=== PATIENT | male | born 1955 | race Caucasian/White ===

== ENCOUNTER 2023-06-27 13:54 | Inpatient (IN) ==
[2023-06-27 14:26] LABS: Base Excess VBG 5.5 mEq/L; HCO3 VBG 33 mmol/L; Oxygen Saturation VBG < 60.0 %; PCO2 VBG 59 mmHg (38-50); PO2 VBG 25 mmHg; pH VBG 7.36 (7.36-7.41)
--- NOTE | 2023-06-27 14:29 | Emergency Department Note ---
Impression & Plan Decreased responsiveness, Acute UTI, History of stroke, RLL pneumonia ED Provider Note Provider: August Patiño MD DATE OF SERVICE: 06/27/2023 CHIEF COMPLAINT: Altered mental status HISTORY OF PRESENT ILLNESS: Patient is a 68-year-old gentleman past medical history of hypertension, hyperlipidemia, type 2 diabetes, COPD, alcohol use, and recent hospitalization at [facility] found to have a left MCA stroke and PEs. Records from the facility stated the PEs are likely subacute or chronic possibly with pneumonia and COPD exacerbation. Patient discharged yesterday to [facility] for rehab after hospitalization. Evidently there is some question if he wore his CPAP appropriately overnight and this morning was awake and alert. By lunchtime was more altered and somnolent. Initially placed on CPAP there due to his altered mental status and here for evaluation. Upon arrival the patient is somewhat arousable to verbal stimuli was able to tell me his name but not clearly what is going on. There is no reported trauma or fever. PAST MEDICAL HISTORY: As noted above MEDICATIONS: Reviewed medication list from the facility includes Lasix and Eliquis. SOCIAL HISTORY: History of alcohol use reported by chart PHYSICAL EXAM: GENERAL: Patient in no distress resting eyes closed. Able to arouse to verbal stimuli but still quite drowsy. Head: normocephalic and atraumatic EYES: No injection, discharge or icterus. NECK: Trachea midline. ENT: Mucous membranes pink and moist. LUNGS: Airway patent. No retractions. Breath sounds clear HEART: Regular rate and rhythm. No chest wall tenderness ABDOMEN: Soft and non-tender, without guarding or rebound. SKIN: Acyanotic, warm, dry, without rashes EXTREMITIES: Without swelling, tenderness or deformity NEUROLOGICAL: Withdraws to pain in all extremities but only alert to verbal stimuli. No aphasia. No facial droop or slurred speech. EK bpm normal sinus rhythm. A bit of artifact but no PVC or PAC noted. No acute ST segment elevation noted with a QTc of 460. CONTINUOUS CARDIAC MONITORING: was ordered and showed a heart rate of 70s-80s bpm in normal sinus rhythm Patient's laboratory studies and imaging reviewed. Differential includes Infection, dehydration, metabolic abnormality, hypo/hyperglycemia, electrolyte disturbance, anemia, hypoxia, cardiac sources, intracerebral event, toxicologic, neurologic, as well as other pathologies. IMPRESSION/MEDICAL DECISION MAKING: Patient altered upon arrival. Limited history from him. Reviewed available records from prior hospitalization.Given some gentle IV fluid hydration here as initial blood pressure somewhat low. Will obtain VBG. Will obtain CT of the head given history of stroke in the anticoagulation is change in mental status. Normally on 2 L of oxygen. Does not seem significantly fluid overloaded on clinical exam. Does not seem to have focality to exam and lower suspicion for acute CVA. Not thrombolytic candidate due to his use of anticoagulation in any event. VBG obtained with a pH of 7.36 and a CO2 of 59 does not seem indicative of acute hypercarbic respiratory failure given the normal pH. Lactate normal at 1.5. No anemia. Leukocytosis of 14.[address] of the head obtained and radiology report reviewed without evidence of acute intracranial bleed at this time. Chest x-ray reviewed with low lung volumes and possibly right lower haziness. Patient seems stable on baseline oxygen. Chemistries without severe abnormality but a creatinine noted at 1.7. CK minimally elevated 326 not severely. No evidence of significant transaminitis purulent ammonia 23 is normal. Bilirubin 1.5 not significantly elevated. Respiratory viral panel negative. Urinalysis somewhat questionable for infection. Given the recent hospitalization status covered broadly with Zosyn. Will bring into the hospital for further evaluation of his AMS and what appears to be possibly infection. Received a liter and half of IV fluid cautious given his history of fluid overload from the limited available records here. 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 On anticoagulant therapy just started on eliquis Anxiety Leaky heart valve Hypertension Hyperlipidemia Sleep apnea cpap Pulmonary embolism admitted 06/11/19-06/14/2018 at [facility], unknown etiology--just started on eliquis bid Surgical History History of open reduction and internal fixation (ORIF) procedure right hand pinky---hardware removed Status post trigger finger release right hand History of arthroscopy of right knee History of colonoscopy with polypectomy History of umbilical hernia repair History of right inguinal hernia repair History of appendectomy History of esophagogastroduodenoscopy (EGD) History of tooth extraction Family History Brother Family history of diabetes mellitus Mother Family history of diabetes mellitus Sister Family history of diabetes mellitus Sister Family history of diabetes mellitus Other No family history of adverse response to anesthesia Social History Smoking Status: Never smoker Second Hand Exposure: Yes (went to bars); Do You Dip or Chew Tobacco: No; Hx Alcohol Use: Yes Alcohol type: beer Hx Substance Use: No Preferred Language: Vietnamese Communication Ability: Impaired Check Out Clerk Required: No Beliefs That Will Affect Care: None Current Living Situation: Rehab Current Living Situation Comment: Was transferred from [facility] Rehab Feels Safe at Home: Yes Assistive Devices: CPAP and Glasses Allergies Allergies Allergy/AdvReac Type Severity Reaction Status Date / Time NSAIDS (Non-Steroidal Allergy Mild "not to Verified 06/25/19 10:41 Anti-Inflamma take d/t GERD" Home Meds Home Medications Medication Instructions Recorded Confirmed apixaban 5 mg tablet (Eliquis) 5 mg PO BID 06/25/19 06/27/23 lisinopril 20 mg tablet 20 mg PO QAM 06/25/19 06/27/23 metformin 500 mg tablet 500 mg PO QDL 06/25/19 06/27/23 metoprolol tartrate 25 mg tablet 25 mg PO HS 06/25/19 06/27/23 acetaminophen 325 mg tablet 650 mg PO Q4 PRN Pain (Scale Score 06/27/23 06/27/23 1-3) albuterol sulfate 90 mcg/actuation 2 puff inhalation Q4 PRN Shortness 06/27/23 06/27/23 aerosol inhaler Of Breath amlodipine 10 mg tablet 10 mg PO DAILY 06/27/23 06/27/23 aspirin 81 mg chewable tablet 81 mg PO DAILY 06/27/23 06/27/23 atorvastatin 80 mg tablet 80 mg PO HS 06/27/23 06/27/23 cyclobenzaprine 5 mg tablet 5 mg PO BID PRN Muscle Spasm 06/27/23 06/27/23 docusate sodium 100 mg capsule 100 mg PO BID 06/27/23 06/27/23 duloxetine 20 mg capsule,delayed 20 mg PO DAILY 01/15/24 01/15/24 release furosemide 20 mg tablet 20 mg PO .BID AC 06/27/23 06/27/23 gabapentin 300 mg capsule 300 mg PO Q8 06/27/23 06/27/23 metformin 1,000 mg tablet 1,000 mg PO BIDWMEAL 06/27/23 06/27/23 metoprolol tartrate 50 mg tablet 50 mg PO DAILY 06/27/23 06/27/23 (Lopressor) ondansetron 4 mg disintegrating 4 mg PO Q4 PRN NAUSEA OR VOMITING 06/27/23 06/27/23 tablet pantoprazole 40 mg tablet,delayed 40 mg PO BID 06/27/23 06/27/23 release polyethylene glycol 3350 17 17 g PO .Q LUNCH PRN Constipation 06/27/23 06/27/23 gram/dose oral powder (Miralax) sennosides 8.6 mg-docusate sodium 1 tab-cap PO QDL PRN Constipation 06/27/23 06/27/23 50 mg tablet (Senokot-S) tamsulosin 0.4 mg capsule 0.4 mg PO .EVERY 12 HOURS 06/27/23 06/27/23 trazodone 150 mg tablet 150 mg PO HS 06/27/23 06/27/23 Results & Data (ED) Vital Signs Vital Signs - 24 hr 06/27/23 13:54 06/27/23 14:10 06/27/23 14:26 Temperature 36.8 C Temperature Source Oral Pulse Rate 78 75 74 Pulse Rate [Apical] Pulse Rate from SpO2 Sensor 74 Respiratory Rate 16 14 Respiratory Effort / Characteristics Non-Labored Spontaneous Respiratory Depth Normal Respiratory Pattern Regular Blood Pressure 89/67 L 94/70 L Blood Pressure [Left Arm] Blood Pressure Mean 74 78 Blood Pressure Mean [Left Arm] Blood Pressure Position Lying Blood Pressure Position [Left Arm] Pulse Oximetry 94 95 Oxygen Delivery Method Nasal Cannula Oxygen Flow Rate 2 2 Sepsis Recent Fever Within 48 Hours No Sepsis New/Unexplained Change in Mental Status Yes Sepsis Action Taken by Nursing Physician Notified 06/27/23 15:13 06/27/23 15:13 06/27/23 16:00 Temperature Temperature Source Pulse Rate Pulse Rate [Apical] 75 74 Pulse Rate from SpO2 Sensor Respiratory Rate 11 L 16 Respiratory Effort / Characteristics Non-Labored Spontaneous Non-Labored Spontaneous Respiratory Depth Normal Normal Respiratory Pattern Regular Regular Blood Pressure Blood Pressure [Left Arm] 103/68 109/84 Blood Pressure Mean Blood Pressure Mean [Left Arm] 79 92 Blood Pressure Position Blood Pressure Position [Left Arm] Semi-fowlers Semi-fowlers Pulse Oximetry 92 92 93 Oxygen Delivery Method Nasal Cannula Nasal Cannula Nasal Cannula Oxygen Flow Rate 3 3 3 Sepsis Recent Fever Within 48 Hours Sepsis New/Unexplained Change in Mental Status Sepsis Action Taken by Nursing Laboratory Data 06/27/23 14:05 06/27/23 15:03 Lab Results 06/27/23 06/27/23 06/27/23 Range/Units 14:05 14:30 15:03 WBC 14.76 H (4.8-10.8) K/ul RBC 5.60 (4.70-6.10) M/uL Hgb 16.8 (14.0-18.0) g/dl Hct 50.3 (42.0-52.0) % MCV 89.8 (80.0-100.0) fL MCH 30.0 (25.0-34.0) pg MCHC 33.4 (32.0-36.0) g/dL RDW Std Deviation 45.0 (36.4-46.3) fL RDW Coeff of Sarah 13.6 (11.5-14.5) % Plt Count 306 (130-400) K/uL MPV 9.4 (9.4-12.4) fL Immature Gran % (Auto) 0.5 % Neut % (Auto) 82.4 % Lymph % (Auto) 9.4 % [place] % (Auto) 6.2 % Eos % (Auto) 1.1 % Baso % (Auto) 0.4 % Neut # (Auto) 12.16 H (1.40-6.50) K/uL Lymph # (Auto) 1.39 (1.20-3.40) K/uL [place] # (Auto) 0.92 H (0.11-0.59) K/uL Eos # (Auto) 0.16 (0.00-0.50) K/uL Baso # (Auto) 0.06 (0.00-0.20) K/uL Immature Gran # (Auto) 0.07 (0.01-0.20) K/uL PT Cancelled INR Cancelled VBG pH 7.36 (7.36-7.41) VBG pCO2 59 H (38-50) mmHg VBG pO2 25 mmHg VBG HCO3 33 mmol/L VBG O2 Saturation < 60.0 % VBG Base Excess 5.5 mEq/L Sodium Cancelled 136 Potassium Cancelled 4.8 Chloride Cancelled 99 Carbon Dioxide Cancelled 30 Anion Gap Cancelled 7 BUN Cancelled 17 Creatinine Cancelled 1.74 H Est Cr Clr Drug Dosing Cancelled 41.4 Est GFR ( Amer) Cancelled 45.4 Est GFR (Non-Af Amer) Cancelled 39.1 BUN/Creatinine Ratio Cancelled 9.8 L Glucose Cancelled 216 H Lactate 1.5 (0.4-2.0) mmol/L Calcium Cancelled 8.9 Magnesium Cancelled 1.7 Total Bilirubin Cancelled 1.5 H AST Cancelled 19 ALT Cancelled 15 Alkaline Phosphatase Cancelled 63 Ammonia 23.0 (18-72) umol/L Total Creatine Kinase Cancelled 326 H Troponin I High Sens Cancelled 14.4 C-Reactive Protein 1.71 H (0-0.5) mg/dl Total Protein Cancelled 6.8 Albumin Cancelled 3.9 Globulin Cancelled 2.9 Albumin/Globulin Ratio Cancelled 1.3 TSH Cancelled 2.837 Urine Color Urine Appearance (Clear) Urine pH (4.5-7.5) Ur Specific [place] (1.000-1.030) Urine Protein (Negative) Urine Glucose (UA) (Negative) Urine Ketones (Negative) Urine Blood (Negative) Urine Nitrite (Negative) Urine Bilirubin (Negative) Urine Urobilinogen (Negative) Ur Leukocyte Esterase (Negative) Urine RBC (0-4) /hpf Urine WBC (0-5) /hpf Ur Epithelial Cells (0-5) /lpf Urine Bacteria (Negative) Urine Opiates Screen (Neg) Ur Methadone, Qual (Neg) Urine Barbiturates (Neg) Ur Phencyclidine (PCP) (Neg) U Amphetamin/Meth Scrn (Neg) MDMA (Ecstasy) Screen (Neg) U Benzodiazepines Scrn (Neg) Ur Cocaine Metabolite (Neg) U Marijuana (THC) Screen (Neg) Adenovirus (PCR) Not Detected (NotDetected) B. pertussis DNA (PCR) Not Detected (NotDetected) B.parapertussis DNA PCR Not Detected (NotDetected) C. pneumoniae DNA (PCR) Not Detected (NotDetected) Coronavirus OC43 (PCR) Not Detected (NotDetected) Coronavirus HKU1 (PCR) Not Detected (NotDetected) Coronavirus 229E (PCR) Not Detected (NotDetected) SARS-CoV-2 (PCR) Not Detected (NotDetected) Coronavirus NL63 (PCR) Not Detected (NotDetected) Human Metapneumovir PCR Not Detected (NotDetected) Influenza Type A (PCR) Not Detected (NotDetected) Influenza Type B (PCR) Not Detected (NotDetected) M. pneumoniae (PCR) Not Detected (NotDetected) Parainfluenza 1 (PCR) Not Detected (NotDetected) Parainfluenza 2 (PCR) Not Detected (NotDetected) Parainfluenza 3 (PCR) Not Detected (NotDetected) Parainfluenza 4 (PCR) Not Detected (NotDetected) RSV (PCR) Not Detected (NotDetected) Entero/Rhino (PCR) Not Detected (NotDetected) 06/27/23 06/27/23 Range/Units 15:26 15:57 WBC (4.8-10.8) K/ul RBC (4.70-6.10) M/uL Hgb (14.0-18.0) g/dl Hct (42.0-52.0) % MCV (80.0-100.0) fL MCH (25.0-34.0) pg MCHC (32.0-36.0) g/dL RDW Std Deviation (36.4-46.3) fL RDW Coeff of Sarah (11.5-14.5) % Plt Count (130-400) K/uL MPV (9.4-12.4) fL Immature Gran % (Auto) % Neut % (Auto) % Lymph % (Auto) % [place] % (Auto) % Eos % (Auto) % Baso % (Auto) % Neut # (Auto) (1.40-6.50) K/uL Lymph # (Auto) (1.20-3.40) K/uL [place] # (Auto) (0.11-0.59) K/uL Eos # (Auto) (0.00-0.50) K/uL Baso # (Auto) (0.00-0.20) K/uL Immature Gran # (Auto) (0.01-0.20) K/uL PT 12.5 H INR 1.2 H VBG pH (7.36-7.41) VBG pCO2 (38-50) mmHg VBG pO2 mmHg VBG HCO3 mmol/L VBG O2 Saturation % VBG Base Excess mEq/L Sodium Potassium Chloride Carbon Dioxide Anion Gap BUN Creatinine Est Cr Clr Drug Dosing Est GFR ( Amer) Est GFR (Non-Af Amer) BUN/Creatinine Ratio Glucose Lactate (0.4-2.0) mmol/L Calcium Magnesium Total Bilirubin AST ALT Alkaline Phosphatase Ammonia (18-72) umol/L Total Creatine Kinase Troponin I High Sens C-Reactive Protein (0-0.5) mg/dl Total Protein Albumin Globulin Albumin/Globulin Ratio TSH Urine Color Yellow Urine Appearance Clear (Clear) Urine pH 6.0 (4.5-7.5) Ur Specific [place] 1.020 (1.000-1.030) Urine Protein Trace H (Negative) Urine Glucose (UA) 1+ H (Negative) Urine Ketones Negative (Negative) Urine Blood Trace-intact H (Negative) Urine Nitrite Positive A (Negative) Urine Bilirubin Negative (Negative) Urine Urobilinogen Negative (Negative) Ur Leukocyte Esterase Trace H (Negative) Urine RBC 0-4 (0-4) /hpf Urine WBC 10-30 H (0-5) /hpf Ur Epithelial Cells 0-5 (0-5) /lpf Urine Bacteria 3+ H (Negative) Urine Opiates Screen Neg (Neg) Ur Methadone, Qual Neg (Neg) Urine Barbiturates Neg (Neg) Ur Phencyclidine (PCP) Neg (Neg) U Amphetamin/Meth Scrn Neg (Neg) MDMA (Ecstasy) Screen Neg (Neg) U Benzodiazepines Scrn Pos H (Neg) Ur Cocaine Metabolite Neg (Neg) U Marijuana (THC) Screen Neg (Neg) Adenovirus (PCR) (NotDetected) B. pertussis DNA (PCR) (NotDetected) B.parapertussis DNA PCR (NotDetected) C. pneumoniae DNA (PCR) (NotDetected) Coronavirus OC43 (PCR) (NotDetected) Coronavirus HKU1 (PCR) (NotDetected) Coronavirus 229E (PCR) (NotDetected) SARS-CoV-2 (PCR) (NotDetected) Coronavirus NL63 (PCR) (NotDetected) Human Metapneumovir PCR (NotDetected) Influenza Type A (PCR) (NotDetected) Influenza Type B (PCR) (NotDetected) M. pneumoniae (PCR) (NotDetected) Parainfluenza 1 (PCR) (NotDetected) Parainfluenza 2 (PCR) (NotDetected) Parainfluenza 3 (PCR) (NotDetected) Parainfluenza 4 (PCR) (NotDetected) RSV (PCR) (NotDetected) Entero/Rhino (PCR) (NotDetected) Administered Medications Apixaban (Apixaban 5 Mg Tablet) 5 mg PO BID RADHA Stop: 07/27/23 20:59 Last Admin: 06/27/23 21:10 Dose: Not Given Documented By: TEREZA Atorvastatin Calcium (Atorvastatin 40 Mg Tab) 80 mg PO HS RADHA Stop: 07/27/23 20:59 Last Admin: 06/27/23 21:10 Dose: Not Given Documented By: TEREZA Docusate Sodium (Docusate Sodium 100 Mg Cap) 100 mg PO BID RADHA Stop: 07/27/23 20:59 Last Admin: 06/27/23 21:10 Dose: Not Given Documented By: TEREZA Lactated Ringer's (Lr) 1,000 mls @ 125 mls/hr IV .Q8H RADHA Stop: 06/28/23 18:44 Last Admin: 06/27/23 19:05 Dose: 125 mls/hr Documented By: DIANDRA Metoprolol Tartrate (Metoprolol Tartrate 25 Mg Tab) 25 mg PO HS RADHA Stop: 07/27/23 20:59 Last Admin: 06/27/23 21:10 Dose: Not Given Documented By: TEREZA Pantoprazole Sodium (Pantoprazole 40 Mg Tab) 40 mg PO BID RADHA Stop: 07/27/23 20:59 Last Admin: 06/27/23 21:10 Dose: Not Given Documented By: TEREZA Discontinued Medications Sodium Chloride (Nss) 500 mls @ 999 mls/hr IV .Q31M RADHA Stop: 06/27/23 15:00 Last Infusion: 06/27/23 15:49 Dose: Infused Documented By: Admin: 06/27/23 15:15 Dose: 999 mls/hr Documented By: DIANDRA Piperacillin Sod/Tazobactam Sod (Zosyn) 4.5 gm in 100 mls @ 200 mls/hr IV NOW ONE Stop: 06/27/23 16:33 Last Infusion: 06/27/23 16:47 Dose: Infused Documented By: Admin: 06/27/23 16:12 Dose: 200 mls/hr Documented By: DIANDRA Sodium Chloride (Nss) 1,000 mls @ 999 mls/hr IV .Q1H1M ONE Stop: 06/27/23 17:04 Last Infusion: 06/27/23 17:21 Dose: Infused Documented By: Admin: 06/27/23 16:13 Dose: 999 mls/hr Documented By: DIANDRA Vancomycin HCl 2,000 mg/ (Sodium Chloride) 540 mls @ 200 mls/hr IV ONE ONE Stop: 06/27/23 19:56 Last Infusion: 06/27/23 20:38 Dose: Infused Documented By: Admin: 06/27/23 17:30 Dose: 200 mls/hr Documented By: DIANDRA Imaging Data Radiologist's Impression: Chest X-Ray 06/27/23 14:18 XR chest 1V portable HISTORY: Altered mental status. COMPARISON: None. FINDINGS: No pneumothorax. No pleural effusions. There are low lung volumes. The cardiac silhouette is mildly enlarged. Small hazy density within the base the right lower lobe. The left lung is clear. No evidence for pulmonary edema. No acute fractures. Degenerative changes within the shoulders. IMPRESSION: Small hazy density within the right lower lobe. This could represent atelectasis or a pneumonia. ACT 112: Negative or not required by law. Electronically signed by: Rajan Baker M.D. 06/27/2023 3:[address] 06/27/23 14:18 CT head/brain wo con CLINICAL HISTORY: ams Technique: Contiguous axial CT images of the head were acquired from the base of the skull to the vertex without intravenous contrast administration. Images were viewed in brain, subdural and bone windows. Automated dose lowering techniques and/or adjustment according to patient size were utilized for this exam. Comparison: None available at the time of this dictation. Findings: Areas of decreased attenuation are present in the periventricular and subcortical white matter bilaterally consistent with small vessel ischemic disease. Generalized cerebral atrophy with commensurate enlargement of the ventricles, sulci, and cisterns is also present. There is no acute intracranial hemorrhage or evidence of acute territorial infarction. No shift of the midline structures, mass effect, or extra-axial abnormalities are shown. Atherosclerotic calcifications are present in the intracranial segments of the internal carotid arteries. Imaged portions of the paranasal sinuses and mastoid air cells are clear. The orbits appear normal. There are no acute fractures of the calvaria or scalp swelling. Impression: No acute intracranial hemorrhage, no evidence of acute territorial infarction or other acute intracranial disease process. ACT 112: Negative or not required by law. Electronically signed by: Lauro Armstrong M.D. 06/27/2023 3:18 PM Discharge Plan Visit Data Chief Complaint: Confusion Stated Complaint: AMS, LETHARGIC ED Provider: August Patiño Discharge Problem: Decreased responsiveness, Acute UTI, History of stroke, RLL pneumonia Patient Disposition: Admitted As Inpatient Discharge Instructions Interventions: ED Discharge Assessment Last Done: 06/27/23 17:54
[2023-06-27] MEDS ORDERED: SODIUM CHLORIDE 0.9% 500 ML IV SCH (14:30)
[2023-06-27 14:39] LABS: Basophils # (auto) 0.06 K/uL (0.00-0.20); Basophils % (auto) 0.4 %; Eosinophils # (auto) 0.16 K/uL (0.00-0.50); Eosinophils % (auto) 1.1 %; Hematocrit (blood only) 50.3 % (42.0-52.0); Hemoglobin 16.8 g/dl (14.0-18.0); Immature Granulocytes # (auto) 0.07 K/uL (0.01-0.20); Immature Granulocytes % (auto) 0.5 %; Lymphocytes # (auto) 1.39 K/uL (1.20-3.40); Lymphocytes % (auto) 9.4 %; Mean Corpuscular Hgb Conc 33.4 g/dL (32.0-36.0); Mean Corpuscular Volume 89.8 fL (80.0-100.0); Mean Platelet Volume 9.4 fL (9.4-12.4); Monocytes # (auto) 0.92 K/uL (0.11-0.59); Monocytes % (auto) 6.2 %; Neutrophils # (auto) 12.16 K/uL (1.40-6.50); Neutrophils % (auto) 82.4 %; Platelet Count 306 K/uL (130-400); RDW Coefficient of Variation 13.6 % (11.5-14.5); White Blood Count 14.76 K/ul (4.8-10.8)
--- NOTE | 2023-06-27 15:20 | CT Scan Report ---
CT head/brain wo con CLINICAL HISTORY: ams Technique: Contiguous axial CT images of the head were acquired from the base of the skull to the cary live without intravenous contrast administration. Images were viewed in brain, subdural and [facility]. Automated dose lowering techniques and/or adjustment according to patient size were utilized for this exam. Comparison: None available at the time of this dictation. Findings: Areas of decreased attenuation are present in the periventricular and subcortical white matter bilate rally consistent with small vessel ischemic disease. Generalized cerebral atrophy with commensurate e nlargement of the ventricles, sulci, and cisterns is also present. There is no acute intracranial hem orrhage or evidence of acute territorial infarction. No shift of the midline structures, mass effect, or extra-axial abnormalities are shown. Atherosclerotic calcifications are present in the intracran ial segments of the internal carotid arteries. Imaged portions of the paranasal sinuses and mastoid air cells are clear. The orbits appear normal. There are no acute fractures of the calvaria or scalp swelling. Impression: No acute intracranial hemorrhage, no evidence of acute territorial infarction or other acute intracra nial disease process. ACT 112: Negative or not required by law. Electronically signed by: Lauro Armstrong M.D. 06/27/2023 3:18 PM
[2023-06-27 15:26] LABS: Adenovirus PCR Not Detected (NotDetected); Bordetella parapertussis PCR Not Detected (NotDetected); Bordetella pertussis PCR Not Detected (NotDetected); Chlamydia pneumoniae PCR Not Detected (NotDetected); Coronavirus 229E PCR Not Detected (NotDetected); Coronavirus CoV-2 (COVID19)PCR Not Detected (NotDetected); Coronavirus HKU1 PCR Not Detected (NotDetected); Coronavirus NL63 PCR Not Detected (NotDetected); Coronavirus OC43PCR Not Detected (NotDetected); Human Metapneumovirus PCR Not Detected (NotDetected); Influenza A PCR Not Detected (NotDetected); Influenza B PCR Not Detected (NotDetected); Mycoplasma pneumoniae PCR Not Detected (NotDetected); Parainfluenza Virus 1 PCR Not Detected (NotDetected); Parainfluenza Virus 2 PCR Not Detected (NotDetected); Parainfluenza Virus 3 PCR Not Detected (NotDetected); Parainfluenza Virus 4 PCR Not Detected (NotDetected); Respiratory Syncytial VirusPCR Not Detected (NotDetected); Rhinovirus/Enterovirus PCR Not Detected (NotDetected)
[2023-06-27 15:34] LABS: Albumin Level 3.9 gm/dl (3.4-5.0); Bilirubin,Total 1.5 mg/dl (0.2-1.0); Calcium 8.9 mg/dl (8.6-10.3); Magnesium 1.7 mg/dl (1.7-2.4); Potassium 4.8 mmol/L (3.5-5.1)
[2023-06-27 15:40] LABS: Albumin Globulin Ratio 1.3 (0.9-2); BUN Creatinine Ratio 9.8 (10-20); Creatinine Clr Calc Pharmacy 41.4 ml/min; Est GFR (African American) 45.4 ml/min; Est GFR (Non-African American) 39.1 ml/min; Globulin 2.9 gm/dl (2.5-4.0); Total Protein 6.8 gm/dl (6.0-8.3)
[2023-06-27 15:44] LABS: Appearance Urine Clear (Clear); Bilirubin Urine Negative (Negative); Blood Urine Trace-intact (Negative); Color Urine Yellow; Glucose Urine UA 1+ (Negative); Ketones Urine Negative (Negative); Leukocyte Esterase Urine Trace (Negative); Nitrite Urine Positive (Negative); Protein Urine Trace (Negative); Urobilinogen Urine Negative (Negative)
[2023-06-27 15:45] LABS: Troponin I High Sensitivity 14.4 pg/ml (0-20)
--- NOTE | 2023-06-27 15:53 | XRay Report ---
XR chest 1V portable HISTORY: Altered mental status. COMPARISON: None. FINDINGS: No pneumothorax. No pleural effusions. There are low lung volumes. The cardiac silhouette i s mildly enlarged. Small hazy density within the base the right lower lobe. The left lung is clear. N o evidence for pulmonary edema. No acute fractures. Degenerative changes within the shoulders. IMPRESSION: Small hazy density within the right lower lobe. This could represent atelectasis or a pneumonia. ACT 112: Negative or not required by law. Electronically signed by: Rajan Baker M.D. 06/27/2023 3:51 PM
[2023-06-27 15:55] LABS: Thyroid Stimulating Hormone 2.837 uIu/ml (0.300-4.500)
[2023-06-27 15:59] LABS: Bacteria Urine 3+ (Negative); Epithelial Cell Urine 0-5 /lpf (0-5); RBC Urine 0-4 /hpf (0-4)
[2023-06-27] MEDS ORDERED: PIPERACILLIN/TAZOBACTAM 4.5 GM/100 ML BAG IV ONE (16:04)
[2023-06-27] MEDS ORDERED: SODIUM CHLORIDE 0.9% 1,000 ML IV ONE (16:04)
[2023-06-27 16:33] LABS: INR 1.2 (0.9-1.1); Prothrombin Time 12.5 Seconds (9.0-12.0)
[2023-06-27] MEDS ORDERED: VANCOMYCIN HCL 1,750 MG in SODIUM CHLORIDE 0.9% 500 ML IV ONE (16:58)
[2023-06-27] MEDS ORDERED: VANCOMYCIN CONSULT ACTIVE PRN (16:58)
--- NOTE | 2023-06-27 17:06 | History & Physical Report ---
Date of Service June 27, 2023 Assessment & Plan (1) Decreased responsiveness: Plan: Wakes to voice. GCS 13 (E3V4M6) Unclear definitive cause on admission: ?infective - CXR with possible pneumonia and high risk of aspiration, urine analysis concerning for infection ?iatrogenic - multiple medication changes appear to have been made on discharge ?amlodipine and change in metoprolol to tartrate dropping BP ?gabapentin causing decreased responsiveness (did not receive morning of discharge from [facility] therefore assume he was not getting this during his entire hospitalization either) Mild hypercapnia present on VBG, will repeat ABG in AM, aim O2 sats 88-92%, BiPAP HS - doubt significantly contributing and suspect more a result of above Drug screen pending Hold trazodone (2) Acute respiratory failure with hypoxia and hypercapnia: Plan: Aim O2 sats > 88%. BiPAP while napping/sleeping Baseline prior to June was room air but 2LPM O2 since recent hospitalization (3) Acute UTI: Plan: UA concerning for infection Cover with vancomycin/Zosyn pending urine/blood cultures (4) RLL pneumonia: Plan: ?aspiration, will cover with IV Zosyn given recent hospitalization SLT consult (5) History of stroke: Plan: Recent (6) Pulmonary embolism: Plan: Chronic PE noted on CT with recent hospitalization Continue apixaban 5mg PO BID (7) Hyperlipidemia: Plan: Continue atorvastatin (8) Hypertension: Plan: Hold amlodipine - this should probably be discontinued on discharge given hypotensive in the ER Continue metoprolol Hold lisinopril/furosemide although suspect these can be restarted soon since he was tolerating them at [facility] (9) Diabetes mellitus, type 2: Plan: Unknown HbA1C Only on metformin as outpatient Use Novolog for correction only - if needing multiple dosing will add basal coverage (10) GERD (gastroesophageal reflux disease): Plan: Pantoprazole 40mg PO BID (11) Sleep apnea: Plan: BiPAP HS (12) Alcohol use disorder: Plan: Per [facility] notes 10-12 beers daily. Previously on Librium taper. Do not suspect ongoing withdrawal. Plan VTE Prophylaxis - Apixaban Diet - NPO except meds, sips and ice chips Disposition - admit to PCU Admission and Anticipated Discharge Date Admission Date: June 27, 2023 History of Present Illness Chief Complaint: Decreased responsiveness Primary Care Provider: Ludy Dominguez is a 68-year-old male who presents to the ER with decreased responsiveness from [facility]. He was recently admitted to [facility] from June 20 to 2023 for shortness of breath (originally went to the emergency room). He was diagnosed with an acute ischemic left MCA stroke, acute respiratory failure with hypoxia, alcohol abuse, chronic pulmonary embolism, COPD exacerbation. He was discharged to [facility] just yesterday. Unable to gather any information from the patient due to decreased responsiveness. Difficult to tell what medications were changed from inpatient to discharge but able to compare medications given on last morning at [facility] to his discharge medication list - amlodipine 10 mg, gabapentin 300 mg and metformin was restarted on discharge but was not given as inpatient. [facility] hand over note reports his baseline is alert and orientated, generalized weakness, unsteady, incontinence, dysphagia. He became altered today around midday and was started on CPAP therefore sent emergently to the emergency room. He was not requiring any oxygen prior to his recent hospitalization but was discharged on 2 LPM. Possibly he was not put on CPAP overnight last night but was his normal self this morning. Allergies Allergy/AdvReac Type Severity Reaction Status Date / Time NSAIDS (Non-Steroidal Allergy Mild "not to Verified 06/25/19 10:41 Anti-Inflamma take d/t GERD" Home Medications Medication Instructions Recorded Confirmed Type apixaban 5 mg tablet (Eliquis) 5 mg PO BID 06/25/19 06/27/23 History lisinopril 20 mg tablet 20 mg PO QAM 06/25/19 06/27/23 History metformin 500 mg tablet 500 mg PO QDL 06/25/19 06/27/23 History metoprolol tartrate 25 mg tablet 25 mg PO HS 06/25/19 06/27/23 History acetaminophen 325 mg tablet 650 mg PO Q4 PRN Pain (Scale Score 06/27/23 06/27/23 History 1-3) albuterol sulfate 90 mcg/actuation 2 puff inhalation Q4 PRN Shortness 06/27/23 06/27/23 History aerosol inhaler Of Breath amlodipine 10 mg tablet 10 mg PO DAILY 06/27/23 06/27/23 History aspirin 81 mg chewable tablet 81 mg PO DAILY 06/27/23 06/27/23 History atorvastatin 80 mg tablet 80 mg PO HS 06/27/23 06/27/23 History cyclobenzaprine 5 mg tablet 5 mg PO BID PRN Muscle Spasm 06/27/23 06/27/23 History docusate sodium 100 mg capsule 100 mg PO BID 06/27/23 06/27/23 History duloxetine 20 mg capsule,delayed 20 mg PO DAILY 06/27/23 06/27/23 History release furosemide 20 mg tablet 20 mg PO .BID AC 06/27/23 06/27/23 History gabapentin 300 mg capsule 300 mg PO Q8 06/27/23 06/27/23 History metformin 1,000 mg tablet 1,000 mg PO BIDWMEAL 06/27/23 06/27/23 History metoprolol tartrate 50 mg tablet 50 mg PO DAILY 06/27/23 06/27/23 History (Lopressor) ondansetron 4 mg disintegrating 4 mg PO Q4 PRN NAUSEA OR VOMITING 06/27/23 06/27/23 History tablet pantoprazole 40 mg tablet,delayed 40 mg PO BID 06/27/23 06/27/23 History release polyethylene glycol 3350 17 17 g PO .Q LUNCH PRN Constipation 06/27/23 06/27/23 History gram/dose oral powder (Miralax) sennosides 8.6 mg-docusate sodium 1 tab-cap PO QDL PRN Constipation 06/27/23 06/27/23 History 50 mg tablet (Senokot-S) tamsulosin 0.4 mg capsule 0.4 mg PO .EVERY 12 HOURS 06/27/23 06/27/23 History trazodone 150 mg tablet 150 mg PO HS 06/27/23 06/27/23 History Past Med/Surg History Medical History (Updated 06/28/23 @ 06:35 by Baldo Duckworth MD) Osteoarthritis Chronic back pain History of kidney stones GERD (gastroesophageal reflux disease) Diabetes mellitus, type 2 Basal cell carcinoma of nose removed in office On anticoagulant therapy just started on eliquis Anxiety Leaky heart valve Hypertension Hyperlipidemia Sleep apnea cpap Pulmonary embolism admitted 06/11/19-06/14/2018 at [facility], unknown etiology--just started on eliquis bid Surgical History History of open reduction and internal fixation (ORIF) procedure right hand pinky---hardware removed Status post trigger finger release right hand History of arthroscopy of right knee History of colonoscopy with polypectomy History of umbilical hernia repair History of right inguinal hernia repair History of appendectomy History of esophagogastroduodenoscopy (EGD) History of tooth extraction Family History Brother Family history of diabetes mellitus Mother Family history of diabetes mellitus Sister Family history of diabetes mellitus Sister Family history of diabetes mellitus Other No family history of adverse response to anesthesia Social History Smoking Status: Never smoker Second Hand Exposure: Yes (went to bars); Do You Dip or Chew Tobacco: No; Hx Alcohol Use: Yes Alcohol type: beer Hx Substance Use: No Preferred Language: Sammarinese Communication Ability: Impaired 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 Beliefs That Will Affect Care: None Current Living Situation: Rehab Current Living Situation Comment: Was transferred from [facility] Feels Safe at Home: Yes Assistive Devices: CPAP and Glasses Review of Systems Review of Systems: Unobtainable due to cognitive status Physical Exam Constitutional: well developed; + not well nourished and no acute distress Eyes: PERRL, conjunctivae normal, anicteric sclerae ENMT: Mouth: + dry oral mucous membranes Neck: trachea midline, no thyromegaly Respiratory: + labored breathing, + uses accessory mu scles and + prolonged expiratory phase; + not able to speak in complete sentence, no audible wheezes and no stridor Auscultation: + diminished lung sounds (bibasal); no crackles, no rales, no rhonchi and no wheezes Cardiovascular: RRR, no murmur, no edema Gastrointestinal (Abdomen): normal bowel sounds, soft, nontender, no hepatosplenomegaly Musculoskeletal: no cyanosis or clubbing, extremities motor strength 5/5 Skin: no rashes, warm and dry (no areas of cellulitis known) Neurologic: awake (to voice. GCS 13 (E3V4M6)) and + confused Psychiatric: Orientation: alert (no voice); + not oriented x 3 Results & Data Results & Data Vital Signs (Past 12 Hours) Vital Signs Temp Pulse Pulse Resp BP BP Pulse Ox 06/27/23 16:00 74 16 109/84 93 06/27/23 15:13 75 11 L 103/68 92 06/27/23 15:13 92 06/27/23 14:26 74 14 94/70 L 95 06/27/23 14:10 75 06/27/23 13:54 36.8 C 78 16 89/67 L 94 O2 Del Method O2 Flow Rate 06/27/23 16:00 Nasal Cannula 3 06/27/23 15:13 Nasal Cannula 3 06/27/23 15:13 Nasal Cannula 3 06/27/23 14:26 2 06/27/23 14:10 06/27/23 13:54 Nasal Cannula 2 Laboratory Results Abnormal lab results 06/27/23 06/27/23 06/27/23 Range/Units 14:05 15:03 15:26 WBC 14.76 H (4.8-10.8) K/ul MPV (9.4-12.4) fL Neut # (Auto) 12.16 H (1.40-6.50) K/uL Towns # (Auto) 0.92 H (0.11-0.59) K/uL PT (9.0-12.0) Seconds INR (0.9-1.1) ABG pO2 (80-95) mmHg ABG HCO3 (19-24) mmol/L ABG O2 Saturation (90-95) % ABG Base Excess (-9-1.8) mEq/L VBG pCO2 59 H (38-50) mmHg Creatinine 1.74 H (0.6-1.4) mg/dl BUN/Creatinine Ratio 9.8 L (10-20) Glucose 216 H (70-99(Fasting)) mg/dl POC Glucose (70-99) mg/dl Total Bilirubin 1.5 H (0.2-1.0) mg/dl Total Creatine Kinase 326 H (30-223) U/L C-Reactive Protein 1.71 H (0-0.5) mg/dl Urine Protein Trace H (Negative) Urine Glucose (UA) 1+ H (Negative) Urine Blood Trace-intact H (Negative) Urine Nitrite Positive A (Negative) Ur Leukocyte Esterase Trace H (Negative) Urine WBC 10-30 H (0-5) /hpf Urine Bacteria 3+ H (Negative) U Benzodiazepines Scrn Pos H (Neg) 06/27/23 06/27/23 Range/Units 15:57 20:26 WBC (4.8-10.8) K/ul MPV (9.4-12.4) fL Neut # (Auto) (1.40-6.50) K/uL Towns # (Auto) (0.11-0.59) K/uL PT 12.5 H (9.0-12.0) Seconds INR 1.2 H (0.9-1.1) ABG pO2 (80-95) mmHg ABG HCO3 (19-24) mmol/L ABG O2 Saturation (90-95) % ABG Base Excess (-9-1.8) mEq/L VBG pCO2 (38-50) mmHg Creatinine (0.6-1.4) mg/dl BUN/Creatinine Ratio (10-20) Glucose (70-99(Fasting)) mg/dl POC Glucose 180 H (70-99) mg/dl Total Bilirubin (0.2-1.0) mg/dl Total Creatine Kinase (30-223) U/L C-Reactive Protein (0-0.5) mg/dl Urine Protein (Negative) Urine Glucose (UA) (Negative) Urine Blood (Negative) Urine Nitrite (Negative) Ur Leukocyte Esterase (Negative) Urine WBC (0-5) /hpf Urine Bacteria (Negative) U Benzodiazepines Scrn (Neg) Diagnostic Findings CT head/brain wo con CLINICAL HISTORY: ams Technique: Contiguous axial CT images of the head were acquired from the base of the skull to the vertex without intravenous contrast administration. Images were viewed in brain, subdural and bone windows. Automated dose lowering techniques and/or adjustment according to patient size were utilized for this exam. Comparison: None available at the time of this dictation. Findings: Areas of decreased attenuation are present in the periventricular and subcortical white matter bilaterally consistent with small vessel ischemic disease. Generalized cerebral atrophy with commensurate enlargement of the ventricles, sulci, and cisterns is also present. There is no acute intracranial hemorrhage or evidence of acute territorial infarction. No shift of the midline structures, mass effect, or extra-axial abnormalities are shown. Atherosclerotic calcifications are present in the intracranial segments of the internal carotid arteries. Imaged portions of the paranasal sinuses and mastoid air cells are clear. The orbits appear normal. There are no acute fractures of the calvaria or scalp swelling. Impression: No acute intracranial hemorrhage, no evidence of acute territorial infarction or other acute intracranial disease process. XR chest 1V portable HISTORY: Altered mental status. COMPARISON: None. FINDINGS: No pneumothorax. No pleural effusions. There are low lung volumes. The cardiac silhouette is mildly enlarged. Small hazy density within the base the right lower lobe. The left lung is clear. No evidence for pulmonary edema. No acute fractures. Degenerative changes within the shoulders. IMPRESSION: Small hazy density within the right lower lobe. This could represent atelectasis or a pneumonia. Medications Administered ER Medications Given: Normal saline 500 ml bolus Zosyn 4.5g IV Normal saline 1000ml bolus ECG Rate (beats per minute): 75 Rhythm: normal sinus Findings: + nonspecific-ST abn Comparison ECG Date: no prior available Code Status & VTE Plan Code Status Full VTE Prophylaxis Plan VTE Prophylaxis will be ordered: Yes PG Care Time/CCT Total # of Minutes Spent Total Time Spent with Patient: Total time spent is greater than 50% in coordination of care (as documented) at patient's floor/unit and/or counseling patient: Coding Level of Care Code 18745 INT INP/OBS CARE 3/75MIN Diagnoses Decreased responsiveness R41.89 Acute respiratory failure with hypoxia and hypercapnia J96.01; J96.02 Acute UTI N39.0 RLL pneumonia J18.9 History of stroke Z86.73 Pulmonary embolism I26.99 Hyperlipidemia E78.5 Hypertension I10 Diabetes mellitus, type 2 E11.9 GERD (gastroesophageal reflux disease) K21.9 Sleep apnea G47.30 Alcohol use disorder F10.90
[2023-06-27] MEDS ORDERED: VANCOMYCIN HCL 2,000 MG in SODIUM CHLORIDE 0.9% 500 ML IV ONE (17:15)
[2023-06-27 17:31] LABS: C Reactive Protein 1.71 mg/dl (0-0.5)
[2023-06-27 17:49] LABS: Amphetamines+Metham, Urine Neg (Neg); Barbiturates, Urine Neg (Neg); Benzodiazepine, Urine Pos (Neg); Cocaine, Urine Neg (Neg); MDMA (Ecstacy), Urine Neg (Neg); Marijuana, Urine Neg (Neg); Methadone, Urine Neg (Neg); Opiate, Urine Neg (Neg); Phencyclidine, Urine Neg (Neg)
[2023-06-27] MEDS ORDERED: ALBUT/IPRATROP 3MG/0.5MG NEB 3 ML VIAL NEB PRN (17:56)
[2023-06-27] MEDS: LACTATED RINGER'S 1,000 ML IV SCH (19:05)
[2023-06-27] MEDS ORDERED: GLUCOSE 10 TAB/TUBE PO PRN (20:36)
[2023-06-27] MEDS ORDERED: CARBOHYDRATES FOR HYPOGLYCEMIA PO PRN (20:36)
[2023-06-27] MEDS ORDERED: DEXTROSE 50% 50 ML SYRINGE IV PRN (20:36)
[2023-06-27] MEDS ORDERED: GLUCOSE 40% GEL 15 GM TUBE PO PRN (20:36)
[2023-06-27] MEDS ORDERED: GLUCAGON FOR INJ 1 MG VIAL SQ PRN (20:36)
[2023-06-27] MEDS ORDERED: PANTOprazole 40 MG TAB PO SCH (21:00)
[2023-06-27] MEDS ORDERED: METOPROLOL TARTRATE 25 MG TAB PO SCH (21:00)
[2023-06-27] MEDS: DOCUSATE SODIUM 100 MG CAP PO SCH (21:10)
[2023-06-27] MEDS: APIXABAN 5 MG TABLET PO SCH (21:10)
[2023-06-27] MEDS: ATORVASTATIN 40 MG TAB PO SCH (21:10)
[2023-06-27] MEDS: PIPERACILLIN/TAZOBACTAM 4.5 GM in DEXTROSE 5% MINI-B 100 ML IV SCH (21:26)
[2023-06-27] MEDS: INSULIN ASPART PER UNIT CHARGE SC SCH (21:32)
--- OUTSIDE RECORDS SUMMARY | 2023-06-27 21:50 | External Medical Summary ---
Author Name Unknown Address Unknown Organization K09:[facility] [place] [address] Laboratory Report Ordering Provider Test Date Status HY,DEPAMPHILIS 06/27/2023 05:39:00 Final Observation Date Value Abnormality Reference (Units ) Status WBC, Total 06/27/2023 05:39:00 7.55 4.00-10.8 0 (K/uL) Final RBC 06/27/2023 05:39:00 5.58 4.50-5.25 (M/uL) Final Hemoglobin 06/27/2023 05:39:00 16.9 Above high normal 1 4.0-16.8 (g/dL) Final HCT 06/27/2023 05:39:00 50.8 Above high normal 40 .0-48.4 (%) Final MCV 06/27/2023 05:39:00 91.0 82.0-99.5 (fL) Final MCH 06/27/2023 05:39:00 30.3 27.0-34.0 (pg) Final MCHC 06/27/2023 05:39:00 33.3 32.0-36.0 (g/dL) Final RDW 06/27/2023 05:39:00 14.3 11.5-15.5 (%) Final Platelets 06/27/2023 05:39:00 296 140-400 (K /uL) Final MPV 06/27/2023 05:39:00 9.2 6.6-11.1 ( fL) Final Performing Location [facility] [place] [address]
--- OUTSIDE RECORDS SUMMARY | 2023-06-27 21:50 | External Medical Summary | Summary of Care ---
Author Name Unknown Organization [facility] Address [address] [address] Phone [phone] Care Team Providers Care [employer] Name Role Phone Martín Arzate MD Primary Care Provider + Reason for Visit * Reason Comments Cough Short of Breath Dizziness Encounter Details Date Type Department Care Team (Late st Contact Info) Description 06/20/2023 12:15 PM EST Convenient Care Visit [address] [place] [address] Rey Velazco PA-C [address] [facility] [id number] SOB (shortness of breath)* Allergies Active Allergy Reactions Criticality Noted Date Comments Nsaids 02/01/2001 GERD documented as of this encounter (statuses as of 06/20/2023) Medications Medication Sig Dispensed Refills Start Date End Date Status OMEPRAZOLE 20 MG PO TBEC Take 1 Tablet by mouth in the morning and 1 Tablet before bedtime. 0 Active CLONAZEPAM 0.5 MG PO TABS 1 tablet 3-4 times a day 0 Active CITALOPRAM HYDROBROMIDE 20 MG PO TABS once daily 0 Active DILT-XR 240 MG PO CP24 240 mg twice a day 0 Active naproxen (NAPROSYN) 500 MG Tablet Take 1 Tablet by mouth 2 times a day with morning and evening meals. 0 Active gabapentin (NEURONTIN) 300 MG Capsule Take 1 Capsule by mouth in the morning and 1 Capsule at noon and 1 Capsule before bedtime. 0 Active metoprolol (LOPRESSOR) 25 MG TabletIndications:Two tablets in the morning. One tablet at night. Take 1 Tablet by mouth in the morning and 1 Tablet at noon and 1 Tablet before bedtime. 0 Active traZODone (DESYREL) 150 MG TabletIndications:two tablets at bedtime. Take 2 Tablets by mouth at bedtime. 0 Active metFORMIN (GLUCOPHAGE) 500 MG TabletIndications:Two tablets in the morning. One tablet in the afternoon. Two tablets at night. Take 1 Tablet by mouth. 0 Active Acetaminophen (MAPAP) 500 MG CapsuleIndications:Two tablets in the morning. Two tablets at bedtime. Take 1 Capsule by mouth. 0 Active raNITIdine HCl 300 MG Tablet Take 1 Tab by mouth daily. 0 10/09/2018 Active lisinopril (PRINIVIL) 20 MG Tablet Take 1 Tablet by mouth at bedtime. 0 Active Apixaban 5 MG Oral Tablet (Eliquis) Take 1 Tablet by mouth in the morning and 1 Tablet before bedtime. 0 Active Celecoxib 200 MG Oral Capsule (CeleBREX) Take 1 Capsule by mouth in the morning and 1 Capsule before bedtime. 0 Active amLODIPine Besylate 10 MG Oral Tablet (NORVASC) Take 1 Tablet by mouth in the morning. 0 Active cloNIDine HCl 0.2 MG Oral Tablet (CATAPRES) Take 1 Tablet by mouth at bedtime. 0 Active Atorvastatin Calcium 10 MG Oral Tablet (LIPITOR) Take 1 Tablet by mouth at bedtime. 0 Active Famotidine 20 MG Oral Tablet (PEPCID) Take 1 Tablet by mouth in the morning and 1 Tablet before bedtime. 0 Active Albuterol Sulfate 108 (90 Base) MCG/ACT Inhalation Aerosol Powder Breath ActivatedIndications:2 pufffs every 4 hours as needed Inhale by mouth. Indications: 2 pufffs every 4 hours as needed 0 Active oxyCODONE HCl 5 MG Oral Capsule (OXY IR) Take 5 mg by mouth every 6 hours as needed (1-2 tablets every 6 hours as needed). 0 Active CPAP every night at bedtime. 0 Active documented as of this encounter (statuses as of 06/20/2023) Active Problems Problem Noted Date Diagnosed Date Type 2 diabetes mellitus wit h hemoglobin A1c goal of less than 7.0% 09/08/2012 Overview: ICD-10 update of inactive term HTN, GOAL BELOW 140/90 05/01/2009 Overview: Modified per HTN protocol #16. Esophageal reflux 02/02/2001 GENERAL OSTEOARTHROSIS 02/02/2001 documented as of this encounter (statuses as of 06/20/2023) Resolved Problems Problem Noted Date Diagnosed Date Resolved Date HYPERTENSION NOS 02/02/2001 05/05/2009 Overview: Modified per HTN protocol #16. documented as of this encounter (statuses as of 06/20/2023) Social History Tobacco Use Types Packs/Day Years Used Date Smoking Tobacco: Former Cigarettes 0.3 Cigars Smokeless Tobacco: Never Comments:no longer smokes ci garettes but smokes occasional cigar Alcohol Use Standard Drinks/Week Comments Yes 0 (1 standard drink = 0.6 oz pur e alcohol) 8-9 beers per day Sex and Gender Information Value Date Recorded Sex Assigned at Not on file Gender Identity Not on file Sexual Orientation Not on file Job Start Date Occupation Industry Not on file Not on file Not on file documented as of this encounter Last Filed Vital Signs Vital Sign Reading Time Taken Comments Blood Pressure 142/88 06/20/2023 11:19 AM EST Pulse 118 06/20/2023 11:19 AM EST Temperature 36.8 C (98.3 F) 06/20/2023 11:[address] Respiratory Rate 22 06/20/2023 11:19 AM EST Oxygen Saturation 95% 06/20/2023 11:19 AM EST Inhaled Oxygen Concentration - - Weight 84.5 kg (186 lb 3.2 oz) 06/20/2023 11:19 AM EST Height - - Body Mass Index 30.99 06/18/2020 4:16 PM EST documented in this encounter Patient Instructions * Patient Instructions* Rey Velazco PA-C - 06/20/2023 11:56 AM EST WALKED PATIENT TO THE CAR WITH HIS ENERGY CONSERVATION ENGINEER, TABITHA, AND TOLD TABITHA HE NEEDS TO BE SEEN AT [facility] AND THAT I WILL CALL WITH THE REPORT AND LET THEM KNOW HE IS COMING. documented in this encounter Progress Notes * Chanel Ashton CMA - 06/20/2023 11:48 AM EST EKG obtained per providers orders, printed copy given to provider and a copy sent to EKG lab via WIFI * Rey Velazco PA-C - 06/20/2023 11:26 AM EST Subjective: Eder Albrecht is a 68 year old male. Chief Complaint Patient presents with Cough Short of Breath Dizziness Nursing Notes: Chanel Ashton CMA 06/20/23 1126 Signed Nursing Notes: CC: Chief Complaint Patient presents with Cough Short of Breath Dizziness Brief Hx: Patient complains of cough, SOB and dizziness, states he has blood clots in his lungs Duration/Onset: 2 days OTC meds: no Accompanied by: self HPI: SUDDEN ONSET 2 DAYS OF SOB AND CANNOT SLEEP BECAUSE OF IT; NO FEVERS; NO CP; NO URI SYMPTOMS; SOME COUGHING BUT NOTHING COMING UP; Hx of BLOOD CLOTS IN LUNGS - SEES A DR. GARCIA? Through [facility]; STATES HE LAST SAW HIM 3mo AGO AND IS SCHEDULED TO SEE HIM / HAVE CT DONE IN 2wks; ALL OVER BODY ACHES BUT THAT IS FROM YEARS OF WORKING; NO NEW BODY ACHES; All other systems reviewed and are negative. Patient Active Problem List Diagnosis Code Esophageal reflux K21.9 GENERAL OSTEOARTHROSIS M15.9 HTN, GOAL BELOW 140/90 I10 Type 2 diabetes mellitus with hemoglobin A1c goal of less than 7.0% ([facility]) E11.9 Current Outpatient Medications Medication Sig Dispense Refill OMEPRAZOLE 20 MG PO TBEC Take 1 Tablet by mouth in the morning and 1 Tablet before bedtime. CLONAZEPAM 0.5 MG PO TABS 1 tablet 3-4 times a day CITALOPRAM HYDROBROMIDE 20 MG PO TABS once daily DILT-XR 240 MG PO CP24 240 mg twice a day naproxen (NAPROSYN) 500 MG Tablet Take 1 Tablet by mouth 2 times a day with morning and evening meals. gabapentin (NEURONTIN) 300 MG Capsule Take 1 Capsule by mouth in the morning and 1 Capsule at noon and 1 Capsule before bedtime. metoprolol (LOPRESSOR) 25 MG Tablet Take 1 Tablet by mouth in the morning and 1 Tablet at noon and 1 Tablet before bedtime. traZODone (DESYREL) 150 MG Tablet Take 2 Tablets by mouth at bedtime. metFORMIN (GLUCOPHAGE) 500 MG Tablet Take 1 Tablet by mouth. Acetaminophen (MAPAP) 500 MG Capsule Take 1 Capsule by mouth. lisinopril (PRINIVIL) 20 MG Tablet Take 1 Tablet by mouth at bedtime. Apixaban 5 MG Oral Tablet (Eliquis) Take 1 Tablet by mouth in the morning and 1 Tablet before bedtime. Celecoxib 200 MG Oral Capsule (CeleBREX) Take 1 Capsule by mouth in the morning and 1 Capsule before bedtime. amLODIPine Besylate 10 MG Oral Tablet (NORVASC) Take 1 Tablet by mouth in the morning. cloNIDine HCl 0.2 MG Oral Tablet (CATAPRES) Take 1 Tablet by mouth at bedtime. Atorvastatin Calcium 10 MG Oral Tablet (LIPITOR) Take 1 Tablet by mouth at bedtime. Famotidine 20 MG Oral Tablet (PEPCID) Take 1 Tablet by mouth in the morning and 1 Tablet before bedtime. Albuterol Sulfate 108 (90 Base) MCG/ACT Inhalation Aerosol Powder Breath Activated Inhale by mouth.Indications: 2 pufffs every 4 hours as needed raNITIdine HCl 300 MG Tablet Take 1 Tab by mouth daily. (Patient not taking: Reported on 06/20/2023) oxyCODONE HCl 5 MG Oral Capsule (OXY IR) Take 5 mg by mouth every 6 hours as needed (1-2 tablets every 6 hours as needed). (Patient not taking: Reported on 06/20/2023) CPAP every night at bedtime. No current facility-administered medications for this visit. Review of patient's allergies indicates: Allergen Reactions Nsaids GERD OBJECTIVE: BP 142/88 | Pulse 118 | Temp 36.8 C (98.3 F) (Tympanic) | Resp 22 | Wt 84.5 kg (186 lb 3.2 oz) | SpO2 95% | BMI 30.99 kg/m | BSA 1.97 m Review of Systems: See HPI. All other systems reviewed and are negative. PHYSICAL EXAM: General: alert, healthy, and ANXIOUS Head: Normocephalic, No masses, lesions, tenderness or abnormalities Eye Exam: PERRLA, extraocular movements intact, conjunctiva are pink and non- injected, sclera clear Ears: External ears normal, Canals clear, TM's Normal Nose: no mucosal erythema, NO mucosal edema, no purulent discharge Oropharynx: no exudate, NO erythema, lips, buccal mucosa, and tongue normal, and mucous membranes are moist Lymph: no palpable lymphadenopathy Heart: INCREASED rate & rhythm, no murmur, and no gallops Lungs: chest symmetric with normal AP diameter, no chest deformities noted, no chest wall tenderness, lungs clear to auscultation; INCREASED RATE. Neuro Exam: alert & oriented x 3 with fluent speech, no focal motor/sensory deficits, gait normal, reflexes normal and symmetric ASSESSMENT/PLAN: 11:52 - CALLED AND SPOKE WITH [facility] NURSE PATIENT'S Hx, VITALS, AND CONCERNS. SOB (shortness of breath) (Primary) - EKG; Future; Expected date: 06/20/2023 Rey Velazco PA-C 06/20/23 documented in this encounter Nursing Notes * Chanel Ashton CMA - 06/20/2023 11:25 AM EST Nursing Notes: CC: Chief Complaint Patient presents with Cough Short of Breath Dizziness Brief Hx: Patient complains of cough, SOB and dizziness, states he has blood clots in his lungs Duration/Onset: 2 days OTC meds: no Accompanied by: self documented in this encounter Plan of Treatment Scheduled Orders Name Type Priority Associated Diagnoses Orde r Schedule EKG EKG Routine SOB (shortness of breath) Expected: 06/20/2023 (Approximate), Expires: 07/21/2024 Scheduled Procedures Name Priority Associated Diagnoses Date/Ti me COLONOSCOPY FLEXIBLE PROXIMAL DIAGNOSTIC Recall Screen for colon cancer Health Maintenance Due Date Last Done Comments COVID-19 Vaccine (#1) 1954 HbA1c 1960 Pneumococcal Vaccine: 65+ Years (1 - PCV) 1960 Depression Screening 1966 Albumin/Creatinine Ratio 1972 Diabetic Eye Exam 1972 Diabetic Foot Exam 1972 Hepatitis C Screening 1972 DTaP,Tdap,and Td Vaccines (1 - Tdap) 1973 Zoster Vaccines (1 of 2) 2004 Lipid Panel 02/27/2006 02/27/2001 Hepatitis B (1 of 3 - Risk 3-dose series) 2014 GFR 10/27/2017 10/27/2016, 08/10/2010, 11/27/2002, Additional history exists AAA Screening 2019 Influenza Vaccine (FLU shot) (#1) 2023 COLONOSCOPY-EVERY 5 YRS AGES 18-100 04/27/2024 04/27/2019, 04/27/2019, 08/08/2013 GARDASIL-HPV IMMUNIZATION SERIES Aged Out No longer eligible based on patient's age to complete this topic MENINGOCOCCAL (MENACTRA/MENVEO) Aged Out No longer eligible based on patient's age to complete this topic documented as of this encounter Medical Devices Not on filedocumented as of this encounter Visit Diagnoses Diagnosis SOB (shortness of breath)- Primary Shortness of breath documented in this encounter Care Teams [employer] Relationship Specialty Start Date End Date Martín Arzate MD [address] [address] PCP - General 05/12/01 documented as of this encounter"
--- OUTSIDE RECORDS SUMMARY | 2023-06-27 21:50 | External Medical Summary | Summary of Care ---
Author Name Unknown Organization [facility] Address [address] [address] Phone [phone] Care Team Providers Care Tetryl Dissolver Operator Name Role Phone Martín Arzate MD Primary Care Provider + Reason for Visit * Reason Comments Cough Short of Breath Dizziness Encounter Details Date Type Department Care Team (Late st Contact Info) Description 06/20/2023 12:15 PM EST Convenient Care Visit [address] [place] [address] Rey Velazco PA-C [address] [place] [address] SOB (shortness of breath)* Allergies Active Allergy [...] WALKED PATIENT TO THE CAR WITH HIS SALES AGENT CASUALTY INSURANCE, TABITHA, AND TOLD TABITHA HE NEEDS TO BE SEEN AT [facility] AND THAT I WILL CALL WITH THE [...] LUNGS - SEES A DR. GARCIA? Through [facility]; STATES HE LAST SAW HIM 3mo AGO [...] hemoglobin A1c goal of less than 7.0% ([facility]) E11.9 Current Outpatient Medications Medication Sig Dispense [...] ASSESSMENT/PLAN: 11:52 - CALLED AND SPOKE WITH [facility] NURSE PATIENT'S Hx, VITALS, AND CONCERNS. SOB [...] breath documented in this encounter Care Teams Tetryl Dissolver Operator Relationship Specialty Start Date End Date Martín Arzate MD [address] [address] PCP - General 05/12/01 documented as of this encounter"
--- OUTSIDE RECORDS SUMMARY | 2023-06-27 21:50 | External Medical Summary ---
Author Name Unknown Address Unknown Organization K09:[facility] [place] [address] Laboratory Report Ordering Provider Test Date Status HY,DEPAMPHILIS 06/27/2023 07:28:10 Final Observation Date Value Abnormality Reference (Units ) Status BUN 06/27/2023 07:28:10 13 6-20 (mg/dL) Final Creatinine 06/27/2023 07:28:10 1.2 0.6-1.2 (mg/dL) Final Glomerular filtration rate/1.73 sq M.predicted [Volume Rate/Area] in Serum, Plasma or Blood by Creatinine-based formula (CKD-EPI) 06/27/2023 07:28:10 67 >=60 (mL/min) Final eGFR is calculated based on the CKD-EPI 2020 equation SODIUM 06/27/2023 07:28:10 136 135-146 (m mol/L) Final Potassium 06/27/2023 07:28:10 4.3 3.5-5.1 (m mol/L) Final Cl 06/27/2023 07:28:10 97 Below low normal 98- 107 (mmol/L) Final CO2 06/27/2023 07:28:10 28 22-32 (mmo l/L) Final Anion gap 06/27/2023 07:28:10 11 7-15 (mmol /L) Final Glucose 06/27/2023 07:28:10 209 Above high normal 70 -120 (mg/dL) Final Calcium 06/27/2023 07:28:10 9.6 8.4-10.2 ( mg/dL) Final Performing Location [facility] [place] [address]
[2023-06-27] MEDS: ENOXAPARIN INJ 40 MG/0.4 ML SYR SQ SCH (22:24)
[2023-06-27] MEDS: PANTOprazole 40 MG in SYRINGE 0 ML IV SCH (23:11)
[2023-06-28] MEDS: PIPERACILLIN/TAZOBACTAM 4.5 GM in DEXTROSE 5% MINI-B 100 ML IV SCH ×3 (05:25→19:50)
[2023-06-28] MEDS: LACTATED RINGER'S 1,000 ML IV SCH ×2 (05:25→09:52)
[2023-06-28] MEDS ORDERED: VANCOMYCIN HCL 1,000 MG in SODIUM CHLORIDE 0.9% 250 ML IV SCH (05:30)
[2023-06-28 06:10] LABS: Base Excess ABG 2.9 mEq/L (-9-1.8); HCO3 ABG 28 mmol/L (19-24); Oxygen Saturation ABG 95.8 % (90-95); PCO2 ABG 43 mmHg (35-46); PO2 ABG 75 mmHg (80-95); pH ABG 7.42 (7.35-7.45)
[2023-06-28 06:20] LABS: Allen Test Pos (Pos)
[2023-06-28 06:21] LABS: Basophils # (auto) 0.06 K/uL (0.00-0.20); Basophils % (auto) 0.6 %; Eosinophils # (auto) 0.28 K/uL (0.00-0.50); Eosinophils % (auto) 2.6 %; Hemoglobin 15.2 g/dl (14.0-18.0); Immature Granulocytes # (auto) 0.05 K/uL (0.01-0.20); Immature Granulocytes % (auto) 0.5 %; Lymphocytes # (auto) 1.71 K/uL (1.20-3.40); Mean Corpuscular Hemoglobin 30.5 pg (25.0-34.0); Mean Corpuscular Hgb Conc 33.8 g/dL (32.0-36.0); Mean Corpuscular Volume 90.2 fL (80.0-100.0); Mean Platelet Volume 8.9 fL (9.4-12.4); Monocytes % (auto) 8.4 %; Neutrophils # (auto) 7.71 K/uL (1.40-6.50); Neutrophils % (auto) 71.9 %; Platelet Count 279 K/uL (130-400); RDW Coefficient of Variation 13.7 % (11.5-14.5); RDW Standard Deviation 44.9 fL (36.4-46.3); Red Blood Count 4.99 M/uL (4.70-6.10); White Blood Count 10.71 K/ul (4.8-10.8)
[2023-06-28 06:37] LABS: Albumin Globulin Ratio 1.2 (0.9-2); Albumin Level 3.3 gm/dl (3.4-5.0); BUN Creatinine Ratio 12.9 (10-20); Bilirubin,Total 1.2 mg/dl (0.2-1.0); Calcium 8.3 mg/dl (8.6-10.3); Creatinine Clr Calc Pharmacy 62.1 ml/min; Est GFR (African American) 74.1 ml/min; Est GFR (Non-African American) 63.9 ml/min; Globulin 2.7 gm/dl (2.5-4.0); Magnesium 1.5 mg/dl (1.7-2.4); Potassium 3.8 mmol/L (3.5-5.1)
[2023-06-28 07:08] LABS: Estimated Average Glucose 203 mg/dl; Hemoglobin A1C 8.7 % (4.5-5.6)
[2023-06-28] MEDS: INSULIN ASPART PER UNIT CHARGE SC SCH ×4 (08:14→20:48)
[2023-06-28] MEDS: PANTOprazole 40 MG in SYRINGE 0 ML IV SCH ×2 (08:16→19:44)
[2023-06-28] MEDS: ASPIRIN 81 MG CHEW PO SCH (08:17)
[2023-06-28] MEDS: DULoxetine HCL 20 MG CAP PO SCH (08:17)
[2023-06-28] MEDS: DOCUSATE SODIUM 100 MG CAP PO SCH ×2 (08:17→19:52)
[2023-06-28] MEDS ORDERED: METOPROLOL TARTRATE 1 MG/ML VIAL IV SCH ×2 (09:00→21:00)
[2023-06-28] MEDS ORDERED: METOPROLOL TARTRATE 50 MG TAB PO SCH (09:00)
--- NOTE | 2023-06-28 10:24 | Hospitalist Progress Note ---
Date of Service June 28, 2023 Assessment & Plan (1) Acute encephalopathy: Plan: Acute metabolic encephalopathy, with questionable etiology Patient was brought to the hospital with decreased responsiveness Urinalysis shows evidence of UTI chest x-ray showed possible pneumonia. All started on empiric IV antibiotics and also some IV fluids. Upon reevaluation this morning, patient more awake and alert CT scan of the head did not show any acute pathology. (2) Decreased responsiveness: Plan: Wakes to voice. GCS 13 ([id number]) Unclear definitive cause on admission: ?infective - CXR with possible pneumonia and high risk of aspiration, urine analysis concerning for infection ?iatrogenic - multiple medication changes appear to have been made on discharge ?amlodipine and change in metoprolol to tartrate dropping BP ?gabapentin causing decreased responsiveness (did not receive morning of discharge from [place] therefore assume he was not getting this during his entire hospitalization either) Mild hypercapnia present on VBG, upon repeat, now resolved Drug screen pending Hold trazodone (3) Acute respiratory failure with hypoxia and hypercapnia: Plan: Aim O2 sats > 88%. BiPAP while napping/sleeping Baseline prior to June was room air but 2LPM O2 since recent hospitalization (4) Acute UTI: Plan: UA concerning for infection Cover with vancomycin/Zosyn pending urine/blood cultures (5) RLL pneumonia: Plan: ?aspiration, will cover with IV Zosyn given recent hospitalization SLT consult (6) History of stroke: Plan: Recent (7) Pulmonary embolism: Plan: Chronic PE noted on CT with recent hospitalization Continue apixaban 5mg PO BID (8) Hyperlipidemia: Plan: Continue atorvastatin (9) Hypertension: Plan: Hold amlodipine - this should probably be discontinued on discharge given hypotensive in the ER Continue metoprolol Hold lisinopril/furosemide although suspect these can be restarted soon since he was tolerating them at [facility] (10) Diabetes mellitus, type 2: Plan: Unknown HbA1C Only on metformin as outpatient Use Novolog for correction only - if needing multiple dosing will add basal coverage (11) GERD (gastroesophageal reflux disease): Plan: Pantoprazole 40mg PO BID (12) Sleep apnea: Plan: BiPAP HS (13) Alcohol use disorder: Plan: Per [place] notes 10-12 beers daily. Previously on Librium taper. Do not suspect ongoing withdrawal. Plan VTE Prophylaxis - Apixaban Diet -advance diet as tolerated Disposition -continue to monitor, hopefully discharge in next 1 to 2 days Admission and Anticipated Discharge Date Admission Date: June 27, 2023 Subjective Patient seen and examined today, no more awake and alert, denies any chest pain or abdominal pain. Review of Systems Review of Systems: All systems reviewed are negative, apart from the ones contained in the history. Physical Exam Physical Exam: The patient is awake, alert and oriented 3, well developed and well nourished, normocephalic and atraumatic, lying in bed and in no acute distress. HEENT--PERRL, EOMI, mucous membranes and oropharynx mildly dry Neck--supple. No JVD. No bruits. Thyroid normal, trachea midline, no adenopathy. Heart--normal S1 and S2. No murmurs, rubs or gallops. Lungs--clear bilaterally, no respiratory distress, no accessory muscle use. Abdomen--normal bowel sounds and soft. Mild epigastric and left sided abdominal pain Extremities--no cyanosis or clubbing. No edema. Dermatologic--normal skin turgor, normal color, no abnormal lymph nodes, no rash. Neurologic--cranial nerves II through XII grossly intact. Rheumatologic--normal range of motion. Psychiatric--normal affect. Results & Data Results & Data Vital Signs (Past 12 Hours) Vital Signs Temp Pulse Pulse Resp BP Pulse Ox O2 Del Method 06/28/23 07:57 97.3 F L 86 20 124/81 96 Nasal Cannula 06/28/23 04:00 97.3 F L 80 20 147/91 H 96 BiPAP 06/28/23 03:33 83 18 93 06/28/23 00:00 98.1 F 71 20 111/74 94 Room Air O2 Flow Rate FiO2 06/28/23 07:57 3 06/28/23 04:00 06/28/23 03:33 3 06/28/23 00:00 PG Care Time/CCT Total # of Minutes Spent Total Time Spent with Patient: Total time spent is greater than 50% in coordination of care (as documented) at patient's floor/unit and/or counseling patient: Coding Level of Care Code 81290 SUB INP/OBS CARE 2/35MIN Diagnoses Acute encephalopathy G93.40 Decreased responsiveness R41.89 Acute respiratory failure with hypoxia and hypercapnia J96.01; J96.02 Acute UTI N39.0 RLL pneumonia J18.9 History of stroke Z86.73 Pulmonary embolism I26.99 Hyperlipidemia E78.5 Hypertension I10 Diabetes mellitus, type 2 E11.9 GERD (gastroesophageal reflux disease) K21.9 Sleep apnea G47.30 Alcohol use disorder F10.90 Time Spent (min) 35
--- NOTE | 2023-06-28 10:43 | Pharmacy Report ---
Pharmacy PK ABX Note - Date of Service June 28, 2023 - Assessment and Plan Assessment 68 year old M receiving Vancomycin for treatment of UTI, possible Pneumonia. Pertinent microbiologic data includes: blood and urine cultures pending. Day #2 of antimicrobial therapy. Plan Vancomycin * Loading dose: 2000 mg IV x 1 given yesterday evening. * Maintenance dose: 1000 mg IV every 24 hours started this morning based on serum creatinine from yesterday = 1.74 and CrCl = 41.4 ml/min * Maintenance dose increased to 1500 mg (18 mg/kg) IV q24h starting this evening since there is significant improvement in serum cr. today = 1.16, CrCl = 62.1 ml/min. * Regimen is predicted to achieve target AUC/VASHTI of 400-600 mg/L.hr * Random level ordered for: 06/29/23 with AM labs Pharmacy will continue to follow and will adjust dose/frequency as necessary. Thank you. Pharmacy has transitioned to AUC monitoring for vancomycin. AUC/VASHTI is the preferred PK/PD target and is associated with decreased risk of nephrotoxicity compared to traditional trough targets.
[2023-06-28] MEDS ORDERED: VANCOMYCIN HCL 1,500 MG in SODIUM CHLORIDE 0.9% 500 ML IV SCH (18:00)
[2023-06-28] MEDS: ATORVASTATIN 40 MG TAB PO SCH (19:42)
[2023-06-28] MEDS: ENOXAPARIN INJ 40 MG/0.4 ML SYR SQ SCH (19:45)
[2023-06-28] MEDS: METOPROLOL TARTRATE 50 MG TAB PO SCH (19:53)
[2023-06-29] MEDS: PIPERACILLIN/TAZOBACTAM 4.5 GM in DEXTROSE 5% MINI-B 100 ML IV SCH ×2 (04:32→12:19)
--- NOTE | 2023-06-29 06:04 | Electrocardiogram Report ---
Test Reason : Blood Pressure : / mmHG Vent. Rate : 075 BPM Atrial Rate : 075 BPM P-R Int : 146 ms QRS Dur : 088 ms QT Int : 412 ms P-R-T Axes : 057 -17 021 degrees QTc Int : 460 ms Normal sinus rhythm Nonspecific ST and T wave abnormality Abnormal ECG No previous ECGs available Confirmed by Jaime Coronado ([id number]) on 06/29/2023 6:03:52 AM Referred By: [facility] Confirmed By:Jaime Coronado
[2023-06-29 06:40] LABS: Creatinine Clr Calc Pharmacy 65.4 ml/min; Est GFR (Non-African American) 68.1 ml/min
[2023-06-29] MEDS: INSULIN ASPART PER UNIT CHARGE SC SCH ×4 (08:12→20:55)
[2023-06-29] MEDS: DOCUSATE SODIUM 100 MG CAP PO SCH ×2 (08:30→19:14)
[2023-06-29] MEDS: METOPROLOL TARTRATE 25 MG TAB PO SCH (08:30)
[2023-06-29] MEDS: PANTOprazole 40 MG in SYRINGE 0 ML IV SCH ×2 (08:30→19:15)
[2023-06-29] MEDS: DULoxetine HCL 20 MG CAP PO SCH (08:30)
[2023-06-29] MEDS: ASPIRIN 81 MG CHEW PO SCH (08:31)
[2023-06-29 08:53] LABS: BUN Creatinine Ratio 11.8 (10-20); Calcium 8.6 mg/dl (8.6-10.3); Potassium 3.8 mmol/L (3.5-5.1)
--- NOTE | 2023-06-29 10:11 | Pharmacy Report ---
Pharmacy PK ABX Note - Date of Service June 29, 2023 - Assessment and Plan Assessment 06/29/23: Day 3 of antibiotic therapy. Urine culture grew Staph species- sensitivities pending. Blood culture results pending. Patient continues on Vancomycin and Zosyn. Vancomycin dose was 1500 mg IV q24h. Random level obtained today with AM labs = 14.4 mcg/ml. 06/28/23: 68 year old M receiving Vancomycin for treatment of UTI, possible Pneumonia. Pertinent microbiologic data includes: blood and urine cultures pending. Day #2 of antimicrobial therapy. Plan Vancomycin * Random level obtained 06/29/23 resulted as 14.4 mcg/mL. Predicted AUC at steady state: 418 mg/L.hr * Changed to Vancomycin 1500 mg IV Q18h. This is predicted to achieve target AUC/VASHTI of 500-600 mg/L.hr. * Dosing increased to be able to target slightly higher AUC/VASHTI. * Will repeat level in the next 48-72 hours if therapy is continued and/or change in patient clinical status Pharmacy will continue to follow and will adjust dose/frequency as necessary. Thank you. Pharmacy has transitioned to AUC monitoring for vancomycin. AUC/VASHTI is the preferred PK/PD target and is associated with decreased risk of nephrotoxicity compared to traditional trough targets.
--- NOTE | 2023-06-29 10:21 | Hospitalist Progress Note ---
Date of Service June 29, 2023 Assessment & Plan (1) Acute encephalopathy: Plan: Acute metabolic encephalopathy, with questionable etiology Resolving Patient was brought to the hospital with decreased responsiveness Urinalysis shows evidence of UTI chest x-ray showed possible pneumonia. All started on empiric IV antibiotics and also some IV fluids. Upon reevaluation this morning, patient more awake and alert, but still has some mild tremors CT scan of the head did not show any acute pathology. (2) Decreased responsiveness: Plan: Patient getting back to baseline, now more awake and alert and oriented (3) Acute respiratory failure with hypoxia and hypercapnia: Plan: Aim O2 sats > 88%. BiPAP while napping/sleeping Baseline prior to June was room air but 2LPM O2 since recent hospitalization (4) Acute UTI: Plan: UA concerning for infection Cover with vancomycin/Zosyn pending urine/blood cultures (5) RLL pneumonia: Plan: ?aspiration, will cover with IV Zosyn given recent hospitalization SLT consult (6) History of stroke: Plan: Recent left MCA stroke Continue apixaban, atorvastatin, aspirin (7) Pulmonary embolism: Plan: Chronic PE noted on CT with recent hospitalization Continue apixaban 5mg PO BID (8) Hyperlipidemia: Plan: Continue atorvastatin (9) Hypertension: Plan: Hold amlodipine - this should probably be discontinued on discharge given hypotensive in the ER Continue metoprolol Hold lisinopril/furosemide although suspect these can be restarted soon since he was tolerating them at [facility] (10) Diabetes mellitus, type 2: Plan: Unknown HbA1C Only on metformin as outpatient Use Novolog for correction only - if needing multiple dosing will add basal coverage (11) GERD (gastroesophageal reflux disease): Plan: Pantoprazole 40mg PO BID (12) Sleep apnea: Plan: BiPAP HS (13) Alcohol use disorder: Plan: Per [place] notes 10-12 beers daily. Previously on Librium taper. Do not suspect ongoing withdrawal. Plan VTE Prophylaxis - Apixaban Diet -advance diet as tolerated Disposition -continue to monitor, hopefully discharge to rehab to continue his physical therapy Admission and Anticipated Discharge Date Admission Date: June 27, 2023 Subjective Patient seen and examined today, no more awake and alert, denies any chest pain or abdominal pain. Review of Systems Review of Systems: All systems reviewed are negative, apart from the ones contained in the history. Physical Exam Physical Exam: The patient is awake, alert and oriented 3, well developed and well nourished, normocephalic and atraumatic, lying in bed and in no acute distress. HEENT--PERRL, EOMI, mucous membranes and oropharynx mildly dry Neck--supple. No JVD. No bruits. Thyroid normal, trachea midline, no adenopathy. Heart--normal S1 and S2. No murmurs, rubs or gallops. Lungs--clear bilaterally, no respiratory distress, no accessory muscle use. Abdomen--normal bowel sounds and soft. Extremities--no cyanosis or clubbing. No edema. Dermatologic--normal skin turgor, normal color, no abnormal lymph nodes, no rash. Neurologic--cranial nerves II through XII grossly intact. Mild tremors Rheumatologic--normal range of motion. Psychiatric--normal affect. Results & Data Results & Data Vital Signs (Past 12 Hours) Vital Signs Temp Pulse Pulse Resp BP Pulse Ox O2 Del Method 06/29/23 09:00 Nasal Cannula, BiPAP 06/29/23 08:00 92 H 06/29/23 07:47 97.3 F L 87 19 150/93 H 94 Nasal Cannula 06/29/23 06:24 82 06/29/23 04:14 98.1 F 86 19 128/82 93 Nasal Cannula 06/28/23 23:47 97.7 F 92 H 20 132/82 96 CPAP 06/28/23 22:22 103 H 18 96 O2 Flow Rate FiO2 06/29/23 09:00 2 06/29/23 08:00 06/29/23 07:47 2 06/29/23 06:24 06/29/23 04:14 3 06/28/23 23:47 06/28/23 22:22 3 PG Care Time/CCT Total # of Minutes Spent Total Time Spent with Patient: Total time spent is greater than 50% in coordination of care (as documented) at patient's floor/unit and/or counseling patient: Coding Level of Care Code 96771 SUB INP/OBS CARE 2/35MIN Diagnoses Acute encephalopathy G93.40 Decreased responsiveness R41.89 Acute respiratory failure with hypoxia and hypercapnia J96.01; J96.02 Acute UTI N39.0 RLL pneumonia J18.9 History of stroke Z86.73 Pulmonary embolism I26.99 Hyperlipidemia E78.5 Hypertension I10 Diabetes mellitus, type 2 E11.9 GERD (gastroesophageal reflux disease) K21.9 Sleep apnea G47.30 Alcohol use disorder F10.90 Time Spent (min) 35
[2023-06-29] MEDS: VANCOMYCIN HCL 1,500 MG in SODIUM CHLORIDE 0.9% 500 ML IV SCH (12:52)
[2023-06-29] MEDS: APIXABAN 5 MG TABLET PO SCH (19:13)
[2023-06-29] MEDS: ATORVASTATIN 40 MG TAB PO SCH (19:13)
[2023-06-29] MEDS: METOPROLOL TARTRATE 50 MG TAB PO SCH (19:15)
[2023-06-30 03:24] LABS: 7-Aminoclonaz, Confirm NEGATIVE ng/mL (<25); Hydro-Alp Ur, GC/MS NEGATIVE ng/mL (<25); Hydroxyethylflurazepam, Conf NEGATIVE ng/mL (<50); Hydroxymidazolam Ur, GC/MS NEGATIVE ng/mL (<50); Hydroxytriazolam NEGATIVE ng/mL (<50); Lorazepam, Ur GC/MS 126 ng/mL (<50); Nordiazepam, Confirm NEGATIVE ng/mL (<50); Oxazepam Ur, GC/MS 462 ng/mL (<50); Temazepam, Confirm NEGATIVE ng/mL (<50)
[2023-06-30] MEDS ORDERED: OLANZapine 10 MG/2.1 ML SDV IM ONE (04:08)
[2023-06-30] MEDS: VANCOMYCIN HCL 1,500 MG in SODIUM CHLORIDE 0.9% 500 ML IV SCH (06:28)
[2023-06-30] MEDS: METOPROLOL TARTRATE 25 MG TAB PO SCH (08:12)
[2023-06-30] MEDS: APIXABAN 5 MG TABLET PO SCH ×2 (08:12→19:53)
[2023-06-30] MEDS: DULoxetine HCL 20 MG CAP PO SCH (08:12)
[2023-06-30] MEDS: INSULIN ASPART PER UNIT CHARGE SC SCH ×4 (08:13→20:28)
[2023-06-30] MEDS: DOCUSATE SODIUM 100 MG CAP PO SCH ×2 (08:14→19:53)
[2023-06-30] MEDS: ASPIRIN 81 MG CHEW PO SCH (08:14)
[2023-06-30 08:45] LABS: BUN Creatinine Ratio 9.8 (10-20); Calcium 8.5 mg/dl (8.6-10.3); Creatinine Clr Calc Pharmacy 70.6 ml/min; Est GFR (African American) 86.5 ml/min; Est GFR (Non-African American) 74.6 ml/min; Potassium 3.4 mmol/L (3.5-5.1)
[2023-06-30] MEDS ORDERED: POTASSIUM CHLORIDE CRTAB 20 MEQ TABCR PO STA (10:59)
--- NOTE | 2023-06-30 11:10 | Hospitalist Progress Note ---
Date of Service June 30, 2023 Assessment & Plan (1) Acute encephalopathy: Plan: Acute metabolic encephalopathy, with questionable etiology Resolving Patient was brought to the hospital with decreased responsiveness Urinalysis shows evidence of UTI chest x-ray showed possible pneumonia. All started on empiric IV Vanc and Zosyn CT scan of the head did not show any acute pathology. MRI brain from an outside facility confirms known parietal and margo infarct (2) History of stroke: Plan: Recent left MCA stroke and sub acute parietal infarct Continue apixaban, atorvastatin, aspirin Continue PT (3) Decreased responsiveness: Plan: Resolved (4) Acute respiratory failure with hypoxia and hypercapnia: Plan: Aim O2 sats > 88%. BiPAP while napping/sleeping Baseline prior to June was room air but 2LPM O2 since recent hospitalization (5) Acute UTI: Plan: UA concerning for infection Cover with vancomycin/Zosyn pending urine/blood cultures (6) RLL pneumonia: Plan: ?aspiration, will cover with IV Zosyn given recent hospitalization SLT consult (7) Pulmonary embolism: Plan: Chronic PE noted on CT with recent hospitalization Continue apixaban 5mg PO BID (8) Hyperlipidemia: Plan: Continue atorvastatin (9) Hypertension: Plan: Hold amlodipine - this should probably be discontinued on discharge given hypotensive in the ER Continue metoprolol Hold lisinopril/furosemide although suspect these can be restarted soon since he was tolerating them at [facility] (10) Diabetes mellitus, type 2: Plan: Unknown HbA1C Only on metformin as outpatient Use Novolog for correction only - if needing multiple dosing will add basal coverage (11) GERD (gastroesophageal reflux disease): Plan: Pantoprazole 40mg PO BID (12) Sleep apnea: Plan: BiPAP HS (13) Alcohol use disorder: Plan: Per [place] notes 10-12 beers daily. Previously on Librium taper. Do not suspect ongoing withdrawal. Plan VTE Prophylaxis - Apixaban Diet -advance diet as tolerated Disposition -continue to monitor, hopefully discharge to rehab to continue his physical therapy Admission and Anticipated Discharge Date Admission Date: June 27, 2023 Subjective Patient seen and examined today, now more awake and alert, denies any chest pain or abdominal pain. feels very weak Review of Systems Review of Systems: All systems reviewed are negative, apart from the ones contained in the history. Physical Exam Physical Exam: The patient is awake, alert and oriented 3, well developed and well nourished, normocephalic and atraumatic, lying in bed and in no acute distress. HEENT--PERRL, EOMI, mucous membranes and oropharynx mildly dry Neck--supple. No JVD. No bruits. Thyroid normal, trachea midline, no ad enopathy. Heart--normal S1 and S2. No murmurs, rubs or gallops. Lungs--clear bilaterally, no respiratory distress, no accessory muscle use. Abdomen--normal bowel sounds and soft. Extremities--no cyanosis or clubbing. No edema. Dermatologic--normal skin turgor, normal color, no abnormal lymph nodes, no rash. Neurologic--cranial nerves II through XII grossly intact. Mild tremors Rheumatologic--normal range of motion. Psychiatric--normal affect. Results & Data Results & Data Vital Signs (Past 12 Hours) Vital Signs Temp Pulse Pulse Resp BP Pulse Ox O2 Del Method 06/30/23 08:00 89 06/30/23 07:58 Nasal Cannula 06/30/23 07:41 97.7 F 87 19 151/90 H 92 Room Air 06/30/23 05:11 88 06/30/23 03:10 68 20 97 06/30/23 03:07 97.3 F L 74 19 158/105 H 93 CPAP 06/29/23 23:15 73 18 97 06/29/23 23:09 97.9 F 71 20 133/92 96 CPAP O2 Flow Rate 06/30/23 08:00 06/30/23 07:58 2 06/30/23 07:41 06/30/23 05:11 06/30/23 03:10 3 06/30/23 03:07 2 06/29/23 23:15 3 06/29/23 23:09 2 PG Care Time/CCT Total # of Minutes Spent Total Time Spent with Patient: Total time spent is greater than 50% in coordination of care (as documented) at patient's floor/unit and/or counseling patient: Coding Level of Care Code 83165 SUB INP/OBS CARE 2/35MIN Diagnoses Acute encephalopathy G93.40 History of stroke Z86.73 Decreased responsiveness R41.89 Acute respiratory failure with hypoxia and hypercapnia J96.01; J96.02 Acute UTI N39.0 RLL pneumonia J18.9 Pulmonary embolism I26.99 Hyperlipidemia E78.5 Hypertension I10 Diabetes mellitus, type 2 E11.9 GERD (gastroesophageal reflux disease) K21.9 Sleep apnea G47.30 Alcohol use disorder F10.90 Time Spent (min) 35
[2023-06-30] MEDS: PANTOprazole 40 MG in SYRINGE 0 ML IV SCH ×2 (11:13→19:54)
[2023-06-30] MEDS ORDERED: PIPER/TAZO 4.5g in D5W MINI-B 100 ML IV ONE (14:30)
[2023-06-30] MEDS: ATORVASTATIN 40 MG TAB PO SCH (19:53)
[2023-06-30] MEDS: PIPER/TAZO 4.5g in D5W MINI-B 100 ML IV SCH (19:54)
[2023-06-30] MEDS: METOPROLOL TARTRATE 50 MG TAB PO SCH (19:55)
[2023-07-01] MEDS ORDERED: OLANZapine 10 MG/2.1 ML SDV IM STA (01:14)
[2023-07-01 05:09] LABS: BUN Creatinine Ratio 10.9 (10-20); Calcium 8.8 mg/dl (8.6-10.3); Creatinine Clr Calc Pharmacy 60.5 ml/min; Est GFR (African American) 71.8 ml/min; Potassium 3.8 mmol/L (3.5-5.1)
[2023-07-01] MEDS: PIPER/TAZO 4.5g in D5W MINI-B 100 ML IV SCH ×3 (05:11→20:10)
[2023-07-01] MEDS: INSULIN ASPART PER UNIT CHARGE SC SCH ×4 (08:22→20:12)
[2023-07-01] MEDS: APIXABAN 5 MG TABLET PO SCH ×2 (08:37→20:12)
[2023-07-01] MEDS: DOCUSATE SODIUM 100 MG CAP PO SCH ×2 (08:37→20:14)
[2023-07-01] MEDS: PANTOprazole 40 MG in SYRINGE 0 ML IV SCH ×2 (08:37→20:11)
[2023-07-01] MEDS: METOPROLOL TARTRATE 25 MG TAB PO SCH (08:38)
[2023-07-01] MEDS: ASPIRIN 81 MG CHEW PO SCH (08:38)
[2023-07-01] MEDS: DULoxetine HCL 20 MG CAP PO SCH (08:38)
--- NOTE | 2023-07-01 10:37 | Hospitalist Progress Note ---
Date of Service July 01, 2023 Assessment & Plan (1) Acute encephalopathy: Plan: Acute metabolic encephalopathy, with questionable etiology, possibly due to UTI Now resolved CT scan of the head did not show any acute pathology. MRI brain from an outside facility confirms known parietal and margo infarct (2) Acute UTI: Plan: Urine cultures growing coag negative staph, pansensitive Vancomycin has been discontinued Continue Zosyn (3) History of stroke: Plan: Recent left MCA stroke and sub acute parietal infarct Continue apixaban, atorvastatin, aspirin Continue PT (4) Decreased responsiveness: Plan: Resolved (5) Acute respiratory failure with hypoxia and hypercapnia: Plan: Aim O2 sats > 88%. BiPAP while napping/sleeping Baseline prior to June was room air but 2LPM O2 since recent hospitalization (6) RLL pneumonia: Plan: ?aspiration, will cover with IV Zosyn given recent hospitalization SLT consult (7) Pulmonary embolism: Plan: Chronic PE noted on CT with recent hospitalization Continue apixaban 5mg PO BID (8) Hyperlipidemia: Plan: Continue atorvastatin (9) Hypertension: Plan: Hold amlodipine - this should probably be discontinued on discharge given hypotensive in the ER Continue metoprolol Hold lisinopril/furosemide although suspect these can be restarted soon since he was tolerating them at [facility] (10) Diabetes mellitus, type 2: Plan: Unknown HbA1C Only on metformin as outpatient Use Novolog for correction only - if needing multiple dosing will add basal coverage (11) GERD (gastroesophageal reflux disease): Plan: Pantoprazole 40mg PO BID (12) Sleep apnea: Plan: BiPAP HS (13) Alcohol use disorder: Plan: Per [place] notes 10-12 beers daily. Previously on Librium taper. Do not suspect ongoing withdrawal. Plan VTE Prophylaxis - Apixaban Diet -advance diet as tolerated Disposition -patient has been approved for rehab, hopefully discharge to rehab tomorrow Admission and Anticipated Discharge Date Admission Date: June 27, 2023 Subjective Patient seen and examined today, now more awake and alert, denies any chest pain or abdominal pain. feels very weak, sitting up in the chair Review of Systems Review of Systems: All systems reviewed are negative, apart from the ones contained in the history. Physical Exam Physical Exam: The patient is awake, alert and oriented 3, well developed and well nourished, normocephalic and atraumatic, lying in bed and in no acute distress. HEENT--PERRL, EOMI, mucous membranes and oropharynx mildly dry Neck--supple. No JVD. No bruits. Thyroid normal, trachea midline, no adenopathy. Heart--normal S1 and S2. No murmurs, rubs or gallops. Lungs--clear bilaterally, no respiratory distress, no accessory muscle use. Abdomen--normal bowel sounds and soft. Extremities--no cyanosis or clubbing. No edema. Dermatologic--normal skin turgor, normal color, no abnormal lymph nodes, no rash. Neurologic--cranial nerves II through XII grossly intact. Mild tremors Rheumatologic--normal range of motion. Psychiatric--normal affect. Results & Data Results & Data Vital Signs (Past 12 Hours) Vital Signs Temp Pulse Pulse Resp BP BP Pulse Ox 07/01/23 08:24 97.7 F 79 18 150/97 H 95 07/01/23 07:50 79 07/01/23 07:50 06/30/23 23:47 160/101 H 06/30/23 23:00 97.5 F L 83 16 160/110 H 93 O2 Del Method O2 Flow Rate 07/01/23 08:24 Nasal Cannula 2.0 07/01/23 07:50 07/01/23 07:50 Nasal Cannula 2 06/30/23 23:47 06/30/23 23:00 Nasal Cannula 2 PG Care Time/CCT Total # of Minutes Spent Total Time Spent with Patient: Total time spent is greater than 50% in coordination of care (as documented) at patient's floor/unit and/or counseling patient: Coding Level of Care Code 94883 SUB INP/OBS CARE 2/35MIN Diagnoses Acute encephalopathy G93.40 Acute UTI N39.0 History of stroke Z86.73 Decreased responsiveness R41.89 Acute respiratory failure with hypoxia and hypercapnia J96.01; J96.02 RLL pneumonia J18.9 Pulmonary embolism I26.99 Hyperlipidemia E78.5 Hypertension I10 Diabetes mellitus, type 2 E11.9 GERD (gastroesophageal reflux disease) K21.9 Sleep apnea G47.30 Alcohol use disorder F10.90 Time Spent (min) 35
[2023-07-01] MEDS ORDERED: ALPRAZolam 0.25 MG TABLET PO ONE (16:30)
[2023-07-01] MEDS ORDERED: HALOPERIDOL LACTATE 5 MG/ML 1 ML VIAL IM STA (17:05)
[2023-07-01] MEDS: METOPROLOL TARTRATE 50 MG TAB PO SCH (20:11)
[2023-07-01] MEDS: ATORVASTATIN 40 MG TAB PO SCH (20:11)
[2023-07-02] MEDS: PIPER/TAZO 4.5g in D5W MINI-B 100 ML IV SCH ×3 (04:04→20:20)
[2023-07-02] MEDS: INSULIN ASPART PER UNIT CHARGE SC SCH ×4 (08:32→20:19)
[2023-07-02] MEDS: PANTOprazole 40 MG in SYRINGE 0 ML IV SCH ×2 (08:34→20:56)
[2023-07-02] MEDS: APIXABAN 5 MG TABLET PO SCH ×2 (08:34→20:20)
[2023-07-02] MEDS: DULoxetine HCL 20 MG CAP PO SCH (08:34)
[2023-07-02] MEDS: METOPROLOL TARTRATE 25 MG TAB PO SCH (08:34)
[2023-07-02] MEDS: DOCUSATE SODIUM 100 MG CAP PO SCH ×2 (08:36→20:27)
[2023-07-02] MEDS: ASPIRIN 81 MG CHEW PO SCH (08:36)
[2023-07-02 09:52] LABS: BUN Creatinine Ratio 7.8 (10-20); Blood Urea Nitrogen 9 mg/dl (6-23); Calcium 9.7 mg/dl (8.6-10.3); Carbon Dioxide 30 mmol/L (21-32); Chloride 99 mmol/L (98-107); Creatinine Clr Calc Pharmacy 62.6 ml/min; Est GFR (African American) 74.8 ml/min; Est GFR (Non-African American) 64.6 ml/min; Glucose 164 mg/dl (70-99(Fasting))
[2023-07-02 11:07] LABS: Potassium 3.7 mmol/L (3.5-5.1)
--- NOTE | 2023-07-02 11:17 | Hospitalist Progress Note ---
Date of Service July 02, 2023 Assessment & Plan (1) Acute encephalopathy: Plan: Acute metabolic encephalopathy, with questionable etiology, possibly due to UTI Now resolved, although in the evenings he tends to CT scan of the head did not show any acute pathology. MRI brain from an outside facility confirms known parietal and margo infarct (2) Acute UTI: Plan: Urine cultures growing coag negative staph, pansensitive Vancomycin has been discontinued Continue Zosyn (3) History of stroke: Plan: Recent left MCA stroke and sub acute parietal infarct Continue apixaban, atorvastatin, aspirin Continue PT (4) Decreased responsiveness: Plan: Resolved (5) Acute respiratory failure with hypoxia and hypercapnia: Plan: Aim O2 sats > 88%. BiPAP while napping/sleeping Baseline prior to June was room air but 2LPM O2 since recent hospitalization (6) RLL pneumonia: Plan: ?aspiration, will cover with IV Zosyn given recent hospitalization SLT consult (7) Pulmonary embolism: Plan: Chronic PE noted on CT with recent hospitalization Continue apixaban 5mg PO BID (8) Hyperlipidemia: Plan: Continue atorvastatin (9) Hypertension: Plan: Hold amlodipine - this should probably be discontinued on discharge given hypotensive in the ER Continue metoprolol Hold lisinopril/furosemide although suspect these can be restarted soon since he was tolerating them at [facility] (10) Diabetes mellitus, type 2: Plan: Unknown HbA1C Only on metformin as outpatient Use Novolog for correction only - if needing multiple dosing will add basal coverage (11) GERD (gastroesophageal reflux disease): Plan: Pantoprazole 40mg PO BID (12) Sleep apnea: Plan: BiPAP HS (13) Alcohol use disorder: Plan: Per [place] notes 10-12 beers daily. Previously on Librium taper. Do not suspect ongoing withdrawal. Plan VTE Prophylaxis - Apixaban Diet -advance diet as tolerated Disposition -patient has been approved for rehab, hopefully discharge to rehab soon, however patient still needs occasional medicine for agitation which rehab does not want Admission and Anticipated Discharge Date Admission Date: June 27, 2023 Subjective Patient seen and examined today, still up in the chair, alert and awake however in the evenings he tends to sundown Review of Systems Review of Systems: All systems reviewed are negative, apart from the ones contained in the history. Physical Exam Physical Exam: The patient is awake, alert and oriented 3, well developed and well nourished, normocephalic and atraumatic, lying in bed and in no acute distress. HEENT--PERRL, EOMI, mucous membranes and oropharynx mildly dry Neck--supple. No JVD. No bruits. Thyroid normal, trachea midline, no adenopathy. Heart--normal S1 and S2. No murmurs, rubs or gallops. Lungs--clear bilaterally, no respiratory distress, no accessory muscle use. Abdomen--normal bowel sounds and soft. Extremities--no cyanosis or clubbing. No edema. Dermatologic--normal skin turgor, normal color, no abnormal lymph nodes, no rash. Neurologic--cranial nerves II through XII grossly intact. Mild tremors Rheumatologic--normal range of motion. Psychiatric--normal affect. Results & Data Results & Data Vital Signs (Past 12 Hours) Vital Signs Temp Pulse Pulse Resp BP Pulse Ox O2 Del Method 07/02/23 11:03 97.9 F 78 14 139/102 H 93 Nasal Cannula 07/02/23 08:21 97.3 F L 78 16 161/94 H 87 L Nasal Cannula 07/02/23 07:53 Nasal Cannula 07/02/23 07:00 79 07/02/23 04:48 97.5 F L 79 18 153/98 H 93 Nasal Cannula 07/02/23 02:25 18 95 07/01/23 23:29 67 20 95 O2 Flow Rate 07/02/23 11:03 2 07/02/23 08:21 2 07/02/23 07:53 2 07/02/23 07:00 07/02/23 04:48 2.0 07/02/23 02:25 2 07/01/23 23:29 2 PG Care Time/CCT Total # of Minutes Spent Total Time Spent with Patient: Total time spent is greater than 50% in coordination of care (as documented) at patient's floor/unit and/or counseling patient: Coding Level of Care Code 79250 SUB INP/OBS CARE 2/35MIN Diagnoses Acute encephalopathy G93.40 Acute UTI N39.0 History of stroke Z86.73 Decreased responsiveness R41.89 Acute respiratory failure with hypoxia and hypercapnia J96.01; J96.02 RLL pneumonia J18.9 Pulmonary embolism I26.99 Hyperlipidemia E78.5 Hypertension I10 Diabetes mellitus, type 2 E11.9 GERD (gastroesophageal reflux disease) K21.9 Sleep apnea G47.30 Alcohol use disorder F10.90 Time Spent (min) 35
[2023-07-02] MEDS: ATORVASTATIN 40 MG TAB PO SCH (20:20)
[2023-07-02] MEDS: METOPROLOL TARTRATE 50 MG TAB PO SCH (20:21)
[2023-07-03] MEDS: PIPER/TAZO 4.5g in D5W MINI-B 100 ML IV SCH ×2 (03:02→12:40)
[2023-07-03 06:09] LABS: BUN Creatinine Ratio 11.9 (10-20); Calcium 8.8 mg/dl (8.6-10.3); Creatinine Clr Calc Pharmacy 57.1 ml/min; Est GFR (Non-African American) 57.8 ml/min; Potassium 3.9 mmol/L (3.5-5.1)
[2023-07-03] MEDS: DOCUSATE SODIUM 100 MG CAP PO SCH ×2 (08:35→20:44)
[2023-07-03] MEDS: ASPIRIN 81 MG CHEW PO SCH (08:35)
[2023-07-03] MEDS: DULoxetine HCL 20 MG CAP PO SCH (08:35)
[2023-07-03] MEDS: PANTOprazole 40 MG in SYRINGE 0 ML IV SCH ×2 (08:35→20:15)
[2023-07-03] MEDS: APIXABAN 5 MG TABLET PO SCH ×2 (08:35→20:14)
[2023-07-03] MEDS: METOPROLOL TARTRATE 25 MG TAB PO SCH (08:35)
[2023-07-03] MEDS: INSULIN ASPART PER UNIT CHARGE SC SCH ×4 (08:38→20:22)
--- NOTE | 2023-07-03 09:26 | Hospitalist Progress Note ---
Date of Service July 03, 2023 Assessment & Plan (1) Acute encephalopathy: Plan: Acute metabolic encephalopathy, with questionable etiology, possibly due to UTI Now resolved, although in the evenings he tends to CT scan of the head did not show any acute pathology. MRI brain from an outside facility confirms known parietal and margo infarct (2) Acute UTI: Plan: Urine cultures growing coag negative staph, pansensitive Vancomycin has been discontinued Continue Zosyn Convert to oral antibiotics upon discharge (3) History of stroke: Plan: Recent left MCA stroke and sub acute parietal infarct Continue apixaban, atorvastatin, aspirin Continue PT (4) Diabetes mellitus, type 2: Plan: Poorly controlled type 2 diabetes, wakes up with hypoglycemia At home takes metformin Will institute insulin glargine 15 units at night Continue insulin sliding scale. (5) Acute respiratory failure with hypoxia and hypercapnia: Plan: Aim O2 sats > 88%. BiPAP while napping/sleeping Baseline prior to June was room air but 2LPM O2 since recent hospitalization (6) RLL pneumonia: Plan: ?aspiration, will cover with IV Zosyn given recent hospitalization SLT consult (7) Decreased responsiveness: Plan: Resolved (8) Pulmonary embolism: Plan: Chronic PE noted on CT with recent hospitalization Continue apixaban 5mg PO BID (9) Hyperlipidemia: Plan: Continue atorvastatin (10) Hypertension: Plan: Blood pressure under good control At home on amlodipine and lisinopril (11) GERD (gastroesophageal reflux disease): Plan: Pantoprazole 40mg PO BID (12) Sleep apnea: Plan: BiPAP HS (13) Alcohol use disorder: Plan: Per [place] notes 10-12 beers daily. Previously on Librium taper. Do not suspect ongoing withdrawal. Plan VTE Prophylaxis - Apixaban Diet -advance diet as tolerated Disposition -patient has been approved for rehab, hopefully discharge to rehab soon, however patient still needs occasional medicine for agitation which rehab does not want Admission and Anticipated Discharge Date Admission Date: June 27, 2023 Subjective Patient seen and examined today, sitting up in the chair, denies any new complaints, awaiting placement Review of Systems Review of Systems: All systems reviewed are negative, apart from the ones contained in the history. Physical Exam Physical Exam: The patient is awake, alert and oriented 3, well developed and well nourished, normocephalic and atraumatic, lying in bed and in no acute distress. HEENT--PERRL, EOMI, mucous membranes and oropharynx mildly dry Neck--supple. No JVD. No bruits. Thyroid normal, trachea midline, no adenopathy. Heart--normal S1 and S2. No murmurs, rubs or gallops. Lungs--clear bilaterally, no respiratory distress, no accessory muscle use. Abdomen--normal bowel sounds and soft. Extremities--no cyanosis or clubbing. No edema. Dermatologic--normal skin turgor, normal color, no abnormal lymph nodes, no rash. Neurologic--cranial nerves II through XII grossly intact. Mild tremors Rheumatologic--normal range of motion. Psychiatric--normal affect. Results & Data Results & Data Vital Signs (Past 12 Hours) Vital Signs Temp Pulse Pulse Resp BP Pulse Ox O2 Del Method 07/03/23 07:25 85 07/03/23 07:24 97.3 F L 79 18 159/97 H 90 Nasal Cannula 07/03/23 03:02 64 21 95 07/03/23 03:01 97.1 F L 65 16 138/82 95 CPAP 07/02/23 23:00 99.5 F 73 18 128/83 97 CPAP 07/02/23 22:47 18 96 07/02/23 22:28 84 O2 Flow Rate 07/03/23 07:25 07/03/23 07:24 1 07/03/23 03:02 2 07/03/23 03:01 1 07/02/23 23:00 1 07/02/23 22:47 2 07/02/23 22:28 PG Care Time/CCT Total # of Minutes Spent Total Time Spent with Patient: Total time spent is greater than 50% in coordination of care (as documented) at patient's floor/unit and/or counseling patient: Coding Level of Care Code 80992 SUB INP/OBS CARE 2/35MIN Diagnoses Acute encephalopathy G93.40 Acute UTI N39.0 History of stroke Z86.73 Diabetes mellitus, type 2 E11.9 Acute respiratory failure with hypoxia and hypercapnia J96.01; J96.02 RLL pneumonia J18.9 Decreased responsiveness R41.89 Pulmonary embolism I26.99 Hyperlipidemia E78.5 Hypertension I10 GERD (gastroesophageal reflux disease) K21.9 Sleep apnea G47.30 Alcohol use disorder F10.90 Time Spent (min) 35
[2023-07-03] MEDS: METOPROLOL TARTRATE 50 MG TAB PO SCH (20:14)
[2023-07-03] MEDS: ATORVASTATIN 40 MG TAB PO SCH (20:15)
[2023-07-03] MEDS ORDERED: cephALEXin 500 MG CAP PO SCH (21:00)
[2023-07-03] MEDS ORDERED: LANTUS PER UNIT CHARGE SQ SCH (21:00)
[2023-07-04 07:12] LABS: BUN Creatinine Ratio 11.4 (10-20); Calcium 9.3 mg/dl (8.6-10.3); Creatinine Clr Calc Pharmacy 81.8 ml/min; Est GFR (African American) 101.6 ml/min; Est GFR (Non-African American) 87.6 ml/min; Potassium 3.4 mmol/L (3.5-5.1)
[2023-07-04 07:34] LABS: Estimated Average Glucose 206 mg/dl; Hemoglobin A1C 8.8 % (4.5-5.6)
[2023-07-04] MEDS ORDERED: metFORMIN HCL 500 MG TAB PO SCH (08:00)
[2023-07-04] MEDS: DOCUSATE SODIUM 100 MG CAP PO SCH (09:00)
[2023-07-04] MEDS: INSULIN ASPART PER UNIT CHARGE SC SCH ×2 (09:02→13:13)
[2023-07-04] MEDS: PANTOprazole 40 MG in SYRINGE 0 ML IV SCH (09:04)
[2023-07-04] MEDS: ASPIRIN 81 MG CHEW PO SCH (09:04)
[2023-07-04] MEDS: METOPROLOL TARTRATE 25 MG TAB PO SCH (09:04)
[2023-07-04] MEDS: APIXABAN 5 MG TABLET PO SCH (09:04)
[2023-07-04] MEDS: cephALEXin 500 MG CAP PO SCH ×2 (09:04→13:14)
[2023-07-04] MEDS: DULoxetine HCL 20 MG CAP PO SCH (09:04)
--- NOTE | 2023-07-04 13:02 | Discharge Summary ---
Date of Service July 04, 2023 Admission HPI Per Admitting Provider Eder Albrecht is a 68-year-old male who presents to the ER with decreased responsiveness from [facility]. He was recently admitted to [facility] from June 20 to 2023 for shortness of breath (originally went to the emergency room). He was diagnosed with an acute ischemic left MCA stroke, acute respiratory failure with hypoxia, alcohol abuse, chronic pulmonary embolism, COPD exacerbation. He was discharged to [facility] just yesterday. Unable to gather any information from the patient due to decreased responsiveness. Difficult to tell what medications were changed from inpatient to discharge but able to compare medications given on last morning at [facility] to his discharge medication list - amlodipine 10 mg, gabapentin 300 mg and metformin was restarted on discharge but was not given as inpatient. [facility] hand over note reports his baseline is alert and orientated, generalized weakness, unsteady, incontinence, dysphagia. He became altered today around midday and was started on CPAP therefore sent emergently to the emergency room. He was not requiring any oxygen prior to his recent hospitalization but was discharged on 2 LPM. Possibly he was not put on CPAP overnight last night but was his normal self this morning. Principal Diagnosis UTI, acute metabolic encephalopathy Discharge Exam General-alert and oriented x3, no fevers, no chills HEENT-head atraumatic and normocephalic, pupils equal and reactive to light, extraocular muscles intact Neck-no lymphadenopathy or thyromegaly, trachea midline Chest-clear to auscultation. No rales, wheezing or rhonchi Cardiac-regular rate and rhythm, normal S1 and S2 Abdomen-normal bowel sounds, nontender, no hepatosplenomegaly Extremities-no cyanosis, clubbing, or edema Neuro-cranial nerves II through XII intact, motor and sensory function within normal limits, strength symmetrical, no focal deficits Psych-normal affect, normal mood Discharge Data Allergies Allergy/AdvReac Type Severity Reaction Status Date / Time NSAIDS (Non-Steroidal Allergy Mild "not to Verified 06/25/19 10:41 Anti-Inflamma take d/t GERD" Consultations 06/27/23 16:28 ED Decision to Admit Stat Ordered Studies 06/27/23 14:18 CT head/brain wo con Stat Hospital Course (1) Acute encephalopathy: Acute metabolic encephalopathy present on admission due to UTI. Now resolved. Head CT scan negative. He does have old CVA however (2) Acute UTI: Urine cultures growing coag negative staph, pansensitive. Treated while hospitalized with Zosyn. He is now on Keflex. (3) History of stroke: Recent left MCA stroke and sub acute parietal infarct. Continue apixaban, atorvastatin, aspirin. Continue PT (4) Diabetes mellitus, type 2: ADA diet. Sliding scale coverage. Metformin has been restarted. Lantus has been discontinued. (5) Acute respiratory failure with hypoxia and hypercapnia: Resolved. He is now on room air (6) RLL pneumonia: Possibly due to aspiration. Treated while hospitalized with Zosyn (7) Pulmonary embolism: Chronic PE noted on CT with recent hospitalization. Continue apixaban 5mg PO BID (8) Hyperlipidemia: Stable. Continue atorvastatin (9) Hypertension: Stable. Continue amlodipine and lisinopril (10) GERD (gastroesophageal reflux disease): Stable. Continue PPI therapy (11) Sleep apnea: BiPAP HS (12) Alcohol use disorder: Per [facility] notes 10-12 beers daily. Previously on Librium taper. No ongoing withdrawal. Plan Discharge to [facility] today, July 04 Total Time Total Time Spent Total Time Spent (In Minutes): 45-minute Discharge Plan Discharge Items Patient Disposition: Transfer Inpatient Rehab Fac Reason For Visit: DECREASED RESPONSIVENESS Discharge Diagnosis: UTI, acute metabolic encephalopathy Activity: Resume your previous activity Non-emergency contact: Primary Care Provider Call non-emergency contact if: you have any medication questions and your symptoms worsen Follow-up/Referrals: [facility] [Primary Care Provider] - Diet: Carb Consistent or DM2 and Heart Healthy Addtl Attending Provider Instructions: Take Keflex as directed for 5 more days Pending Studies at Discharge: No Stand-Alone Forms: My [facility] Skilled Items Patient informed of condition?: Yes DNR: Yes Discharge Level of Care: Acute rehab Communicable Disease: No Discharge Prognosis: Stable Lines: None Urinary Catheter: No Medications and DC Order Prescriptions: New cephalexin 500 mg Capsule 500 mg PO TID Qty: 0 0RF Continued Eliquis 5 mg Tablet 5 mg PO BID metformin 500 mg Tablet 500 mg PO QDL Patient Comments: in the afternoon lisinopril 20 mg Tablet 20 mg PO QAM metoprolol tartrate 25 mg Tablet 25 mg PO HS gabapentin 300 mg capsule 300 mg PO Q8 furosemide 20 mg tablet 20 mg PO .BID AC duloxetine 20 mg capsule,delayed release(DR/EC) 20 mg PO DAILY ondansetron 4 mg Tablet,Disintegrating 4 mg PO Q4 PRN (Reason: NAUSEA OR VOMITING) docusate sodium 100 mg Capsule 100 mg PO BID polyethylene glycol 3350 [Miralax] 17 gram/dose Powder 17 g PO .Q LUNCH PRN (Reason: Constipation) acetaminophen 325 mg Tablet 650 mg PO Q4 PRN (Reason: Pain (Scale Score 1-3)) amlodipine 10 mg tablet 10 mg PO DAILY aspirin [Aspirin Low-Strength] 81 mg Tablet,Chewable 81 mg PO DAILY cyclobenzaprine 5 mg tablet 5 mg PO BID PRN (Reason: Muscle Spasm) atorvastatin 80 mg tablet 80 mg PO HS pantoprazole 40 mg Tablet,Delayed Release (Dr/Ec) 40 mg PO BID metformin 1,000 mg Tablet 1,000 mg PO BIDWMEAL tamsulosin 0.4 mg Capsule 0.4 mg PO .EVERY 12 HOURS trazodone 150 mg Tablet 150 mg PO HS metoprolol tartrate [Lopressor] 50 mg Tablet 50 mg PO DAILY albuterol sulfate 90 mcg/actuation Hfa Aerosol Inhaler 2 puff INHALATION Q4 PRN (Reason: Shortness Of Breath) sennosides-docusate sodium [Senokot-S] 8.6-50 mg Tablet 1 tab-cap PO QDL PRN (Reason: Constipation) Discharge Orders: Discharge Order (Routine); Ordered 07/04/23 Ordered By: Giovanni Aguirre/Other Patient Handouts: Managing Type 2 Diabetes Admission Data Admit Date/Time: 06/27/23 16:56 Attending Provider: Giovanni Jackson Admit Provider: Baldo Duckworth [facility]: [facility] Duckworth; [facility] C[facility] Level of Care Code 64865 INP/OBS DISCH >30 MIN Diagnoses Acute encephalopathy G93.40 Acute UTI N39.0 History of stroke Z86.73 Diabetes mellitus, type 2 E11.9 Acute respiratory failure with hypoxia and hypercapnia J96.01; J96.02 RLL pneumonia J18.9 Pulmonary embolism I26.99 Hyperlipidemia E78.5 Hypertension I10 GERD (gastroesophageal reflux disease) K21.9 Sleep apnea G47.30 Alcohol use disorder F10.90
== END 2023-07-04 15:42 | DRG 177 ==
LOC: ED 13:54 → SUATTDRO 16:56 → EDINP 16:56 → 4W 20:37